=== PATIENT | male | born 1970 ===

== ENCOUNTER 2016-10-10 18:07 | Emergency (ER) | payer OTHER ==
[2016-10-10 18:08] VITALS: BMI 26.6
[2016-10-10 18:12] VITALS: PULSE 100; RESP 18; TEMP 98.5; O2SAT 98
[2016-10-10 18:22] VITALS: BP 143/94
--- NOTE | 2016-10-10 18:29 | C.PDOC ---
History Of Present Illness 46 y/o male presents to ED for evaluation of occasional throat irritation. Pt has had multiple evaluation for similar symptoms. Pt has history of persistent alcohol abuse daily. Pt is also concerned for elevated blood pressure, notes his BP was high when he checked it at the pharmacy today. Pt is complaint with his BP meds. Otherwise, denies any chest pain, shortness of breath, cough, congestion, or fever. Time Seen by Provider: 10/10/16 18:21 Chief Complaint (Nursing): ENT Problem History Per: Patient History/Exam Limitations: None Onset/Duration Of Symptoms: Days Current Symptoms Are (Timing): Still Present Quality (Mouth/Throat): Tenderness Past Medical History Reviewed: Historical Data, Nursing Documentation, Vital Signs Vital Signs: Last Vital Signs Temp 98.5 F 10/10/16 18:11 Pulse 100 H 10/10/16 18:11 Resp 18 10/10/16 18:11 BP 143/94 H 10/10/16 18:25 Pulse Ox 98 10/10/16 18:29 - Medical History PMH: HTN, Hypercholesterolemia, Hyperlipidemia Family History: States: Unknown Family Hx - Social History Hx Tobacco Use: No Hx Alcohol Use: Yes Hx Substance Use: No - Immunization History Hx Tetanus Toxoid Vaccination: No Hx Influenza Vaccination: No Hx Pneumococcal Vaccination: No Review Of Systems Except As Marked, All Systems Reviewed And Found Negative. Constitutional: Negative for: Fever, Chills ENT: Positive for: Throat Pain. Negative for: Ear Pain, Nose Discharge, Nose Congestion, Throat Swelling Cardiovascular: Negative for: Chest Pain, Palpitations, Edema, Light Headedness Respiratory: Negative for: Cough, Shortness of Breath Gastrointestinal: Negative for: Nausea, Vomiting, Abdominal Pain, Diarrhea Physical Exam - Physical Exam Appears: Non-toxic, No Acute Distress Skin: Normal Color, Warm, Dry Head: Atraumatic, Normacephalic Eye(s): bilateral: Normal Inspection Ear(s): Bilateral: Normal Nose: Normal Oral Mucosa: Moist Throat: Normal, No Erythema, No Exudate, No Drooling Neck: Normal ROM, Supple Chest: Symmetrical Cardiovascular: Rhythm Regular, No Murmur Respiratory: Normal Breath Sounds, No Rales, No Rhonchi, No Wheezing Gastrointestinal/Abdominal: Soft, No Tenderness Extremity: Bilateral: Atraumatic, Normal ROM Neurological/Psych: Oriented x3, Normal Speech ED Course And Treatment O2 Sat by Pulse Oximetry: 98 (on RA) Pulse Ox Interpretation: Normal Medical Decision Making Medical Decision Making: occasional sore throat or itchy soft palate may be more related to GERD from chronic alcoholism and gastritis PPI educated elev BP on sober days, cautioned to observe BP on days when not drinking etoh. good bp med compliance assured. Disposition Doctor Will See Patient In The: Office Counseled Patient/Family Regarding: Studies Performed, Diagnosis - Disposition Referrals: Fox Guzmán MD [Medical Doctor] - Disposition: HOME/ ROUTINE Disposition Time: 18:27 Condition: GOOD Additional Instructions: sherri Pepcid 20 mg en la noche para bajar el acides del estomago debido al uso del alcohol Puede provocar irritacion' del garganta. Recuerda que la pression se sube en los looney que no samanta alcohol. Instructions: Gastritis (ED), Gastroesophageal Reflux Disease (ED), Hypertension (ED) Forms: [employer] (Malagasy) Print Language: ALBANIAN - Clinical Impression Clinical Impression: HTN (hypertension), GERD (gastroesophageal reflux disease), Alcohol abuse, Throat irritation - Scribe Statement The provider has reviewed the documentation as recorded by the Scribe Ammon Parrish All medical record entries made by the Scribe were at my direction and personally dictated by me. I have reviewed the chart and agree that the record accurately reflects my personal performance of the history, physical exam, medical decision making, and the department course for this patient. I have also personally directed, reviewed, and agree with the discharge instructions and disposition.
== END 2016-10-10 18:41 | disposition home or self-care (01) ==
LOC: C.ER 18:07
DX: I10 Essential (primary) hypertension (principal); K21.9 Gastro-esophageal reflux disease without esophagitis; J39.2 Other diseases of pharynx; F10.10 Alcohol abuse, uncomplicated

== ENCOUNTER 2016-11-15 08:04 | Emergency (ER) | payer OTHER ==
[2016-11-15 08:04] VITALS: BMI 26.6
[2016-11-15 08:21] VITALS: RESP 18
--- NOTE | 2016-11-15 09:04 | C.PDOC ---
History Of Present Illness 46 yr old male presents to the ER for evaluation of recurring "hot face" since yesterday. Patient states currently the symptoms similar to prior episode. Patient states he felt his blood pressure was high but did not measure it at home. Patient has history if similar visit to ER. Denies fever, chest pain, SOB , nausea, vomiting, headache, weakness or numbness. RECUR "HOT FACE" SINCE YEST. CURRENT SX SIM TO PRIOR. FELT HIGH BP BUT DID NOT MEASURE AT HOME. NO OTHER ASSOC SX. PRIOR ER VISITS FOR SAME. EXAM NAD NONTOXIC HEENT NEG SKIN NEG CV RRR PSYCH CALM, MILD ANXIETY REMAINDER NEG Time Seen by Provider: 11/15/16 08:26 Chief Complaint (Nursing): Palpitations History Per: Patient History/Exam Limitations: no limitations Onset/Duration Of Symptoms: Persistent Past Medical History Reviewed: Historical Data, Nursing Documentation, Vital Signs Vital Signs: Last Vital Signs Temp 98.7 F 11/15/16 08:16 Pulse 111 H 11/15/16 08:16 Resp 18 11/15/16 08:16 BP 105/80 11/15/16 08:16 Pulse Ox 97 11/15/16 09:05 - Medical History PMH: HTN, Hypercholesterolemia, Hyperlipidemia Family History: States: No Known Family Hx - Social History Hx Tobacco Use: No Hx Alcohol Use: Yes Hx Substance Use: No - Immunization History Hx Tetanus Toxoid Vaccination: No Hx Influenza Vaccination: No Hx Pneumococcal Vaccination: No Review Of Systems Except As Marked, All Systems Reviewed And Found Negative. Constitutional: Negative for: Fever Cardiovascular: Negative for: Chest Pain Respiratory: Negative for: Shortness of Breath Gastrointestinal: Negative for: Nausea, Vomiting Neurological: Negative for: Weakness, Numbness, Headache Physical Exam - Physical Exam Appears: Non-toxic, No Acute Distress Skin: Warm, Dry, No Rash Head: Atraumatic, Normacephalic Oral Mucosa: Moist Chest: Symmetrical, No Tenderness Cardiovascular: Rhythm Regular, No Murmur Respiratory: Normal Breath Sounds, No Rales, No Rhonchi, No Wheezing Extremity: Normal ROM, No Swelling Neurological/Psych: Oriented x3, Normal Speech, Other ((+) Mild anxiety ) ED Course And Treatment ECG: Interpreted By Me ECG Rhythm: Sinus Tachycardia ECG Interpretation: Normal, No Changes From Prior Rate From EC (BPM) O2 Sat by Pulse Oximetry: 97 (RA) Pulse Ox Interpretation: Normal Medical Decision Making Medical Decision Making: PLAN: * EKG * Trandate PO Disposition Counseled Patient/Family Regarding: Studies Performed, Diagnosis, Need For Followup - Disposition Referrals: YOUR,PMD [Other] Disposition: HOME/ ROUTINE Disposition Time: 09:05 Condition: IMPROVED Instructions: Paresthesia (ED), Anxiety (ED) Forms: [facility] (Dominican), Gen Discharge Inst [place]raltarian Print Language: ENGLISH - Clinical Impression Clinical Impression: Paresthesia - Scribe Statement The provider has reviewed the documentation as recorded by the Nathanael Naylor Provider Attestation: All medical record entries made by the Nathanael were at my direction and personally dictated by me. I have reviewed the chart and agree that the record accurately reflects my personal performance of the history, physical exam, medical decision making, and the department course for this patient. I have also personally directed, reviewed, and agree with the discharge instructions and disposition.
[2016-11-15 09:45] VITALS: TEMP 98
[2016-11-15 10:20] VITALS: PULSE 89; O2SAT 95
[2016-11-15 10:51] VITALS: BP 183/98
--- NOTE | 2016-11-23 17:10 | CARD ---
APPROVED REPORT EKG Measurement Heart [id number] <Conclusion> Sinus tachycardia Incomplete right bundle branch block Left anterior fascicular block Abnormal ECG
== END 2016-11-15 10:57 | disposition home or self-care (01) ==
LOC: C.ER 08:04
DX: R20.2 Paresthesia of skin (principal); I10 Essential (primary) hypertension

== ENCOUNTER 2017-04-06 10:28 | Emergency (ER) | payer OTHER ==
[2017-04-06 10:28] VITALS: BMI 28.8
[2017-04-06 10:56] VITALS: O2SAT 98
[2017-04-06] MEDS ORDERED: Naproxen 550 mg Tab PO STA (11:10)
--- NOTE | 2017-04-06 11:11 | C.PDOC ---
History Of Present Illness 46 year old male presents to the ED for evaluation of left knee pain which began after he fell while on a bus yesterday. Patient states his pain is exacerbated by movement. He denies head injury, LOC, change in sensation, or any other injuries at this time. Time Seen by Provider: 04/06/17 10:58 Chief Complaint (Nursing): Lower Extremity Problem/Injury History Per: Patient History/Exam Limitations: no limitations Onset/Duration Of Symptoms: Hrs Current Symptoms Are (Timing): Still Present Additional History Per: Patient - Knee Description Of Injury: Fell Past Medical History Reviewed: Historical Data, Nursing Documentation, Vital Signs Vital Signs: Last Vital Signs Temp 98.5 F 04/06/17 12:19 Pulse 90 04/06/17 12:19 Resp 16 04/06/17 12:19 BP 141/86 04/06/17 12:19 Pulse Ox 98 04/06/17 13:28 - Medical History PMH: HTN, Hypercholesterolemia, Hyperlipidemia Denies: HIV, Chronic Kidney Disease Surgical History: No Surg Hx - [facility] Procedures INTRODUCTION OF SERUM/TOX/VACCINE INTO MUSCLE, PERC APPROACH (12/30/16) Family History: States: Unknown Family Hx - Social History Hx Tobacco Use: No Hx Alcohol Use: Yes Hx Substance Use: No - Immunization History Hx Tetanus Toxoid Vaccination: No Hx Influenza Vaccination: No Hx Pneumococcal Vaccination: No Review Of Systems Musculoskeletal: Positive for: Other (left knee pain ) Neurological: Negative for: Weakness, Numbness, Other (head injury/LOC ) Physical Exam - Physical Exam Appears: Non-toxic, No Acute Distress Skin: Normal Color, Warm, Dry Head: Atraumatic, Normacephalic Eye(s): bilateral: Normal Inspection, EOMI Nose: Normal Oral Mucosa: Moist Chest: Symmetrical Respiratory: No Accessory Muscle Use Extremity: Normal ROM, Tenderness (to anterior aspect of left knee ), Capillary Refill (less than 2 seconds ), No Deformity, Swelling (to anterior aspect of left knee and effusion ) Extremity: Bilateral: Normal Color And Temperature Pulses: Left Dorsalis Pedis: Normal, Right Dorsalis Pedis: Normal Neurological/Psych: Oriented x3, Normal Speech, Normal Cognition, Normal Sensation Gait: Steady ED Course And Treatment O2 Sat by Pulse Oximetry: 98 (on RA ) Pulse Ox Interpretation: Normal - Other Rad Knee XR X-Ray: Interpreted by Me (and Dr Parekh), Viewed By Me Interpretation: No fx or dislocation Progress Note: Left knee XR ordered and reviewed. Naproxen PO administered. Knee immobilizer applied by meter/relay technician. Crutch instructions given. Pt instructed RICe and is advised to f/u with orthopedic care for further evaluation in 1-2 days. Disposition - Disposition Referrals: Aravind Barry III, MD [Staff Provider] - Disposition: HOME/ ROUTINE Disposition Time: 11:59 Condition: STABLE Additional Instructions: Rest, ice , and elevate the area. Follow up with bone doctor in 1-2 days. Return to ER if symptoms persist or worsen. Descanse, hiele y eleve el wendy. Michael un seguimiento con el mdico de los huesos en 1-2 travis. Regrese a la rigoberto de emergencias si los sntomas persisten o empeoran. Prescriptions: Naproxen [Naprosyn] 1 tab PO BID PRN #20 tab PRN Reason: Pain Instructions: Knee Pain (DC) Forms: [employer] (Bengali) Print Language: LATVIAN - Clinical Impression Clinical Impression: Knee effusion, Knee contusion - PA / AIR TUBE RELEASER / Resident Statement MD/DO has reviewed & agrees with the documentation as recorded. - Scribe Statement The provider has reviewed the documentation as recorded by the Scribe (Jayda Parrish) All medical record entries made by the Scribe were at my direction and personally dictated by me. I have reviewed the chart and agree that the record accurately reflects my personal performance of the history, physical exam, medical decision making, and the department course for this patient. I have also personally directed, reviewed, and agree with the discharge instructions and disposition.
[2017-04-06] MEDS ORDERED: Naproxen 550 mg Tab PO ONE (11:19)
[2017-04-06 12:20] VITALS: BP 141/86; PULSE 90; RESP 16; TEMP 98.5
--- NOTE | 2017-04-06 15:06 | RAD ---
Left knee three views History: Knee pain. Comparison: 04/06/2017 Findings: Curvilinear ossific density adjacent to the superior aspect of the medial femoral condyle which may represent a small avulsion injury versus heterotopic bone. Clinical correlation. Mild medial compartment joint space narrowing of the femorotibial joint space. Moderate suprapatellar joint effusion. Impression: Moderate suprapatellar joint effusion. Curvilinear ossific density adjacent to the superior aspect of the medial femoral condyle which may represent a small avulsion injury versus heterotopic bone. Clinical correlation. If pain persists, consider MRI.
== END 2017-04-06 12:34 | disposition home or self-care (01) ==
LOC: C.ER 10:28
DX: M25.462 Effusion, left knee (principal); S80.02XA Contusion of left knee, initial encounter; W18.30XA Fall on same level, unspecified, initial encounter
CPT/HCPCS: 73562; 97116; 97161; 99285; G8978; G8979; G8980

== ENCOUNTER 2017-08-02 09:54 | Observation (INO) | payer OTHER ==
[2017-08-02 09:54] VITALS: BMI 28.8
--- NOTE | 2017-08-02 11:09 | C.PDOC ---
History Of Present Illness 47 y/o male, w/PMhx of HTN, presents to the ER complaining of headache,chest pain, and SOB which began yesterday. Patient states that he ran out of his BP medications and he does not have a doctor. Patient denies having dizziness, visual changes, cough, and fever. Time Seen by Provider: 08/02/17 10:36 Chief Complaint (Nursing): Headache History Per: Patient History/Exam Limitations: no limitations Onset/Duration Of Symptoms: Days Current Symptoms Are (Timing): Still Present Severity: Moderate Past Medical History Reviewed: Historical Data, Nursing Documentation, Vital Signs Vital Signs: Last Vital Signs Temp 98.0 F 08/03/17 15:42 Pulse 66 08/03/17 15:42 Resp 20 08/03/17 15:42 BP 129/77 08/03/17 17:52 Pulse Ox 97 08/03/17 15:42 - Medical History PMH: HTN, Hypercholesterolemia, Hyperlipidemia Denies: HIV, Chronic Kidney Disease Surgical History: No Surg Hx - [facility] Procedures INTRODUCTION OF SERUM/TOX/VACCINE INTO MUSCLE, PERC APPROACH (12/30/16) Family History: States: No Known Family Hx - Social History Hx Tobacco Use: No Hx Alcohol Use: Yes Hx Substance Use: No - Immunization History Hx Tetanus Toxoid Vaccination: No Hx Influenza Vaccination: No Hx Pneumococcal Vaccination: No Review Of Systems Except As Marked, All Systems Reviewed And Found Negative. Constitutional: Negative for: Fever, Chills Neurological: Positive for: Headache Physical Exam - Physical Exam Appears: Non-toxic, No Acute Distress, Other (awake, alert, orientedx3) Skin: Normal Color, Warm, Dry Head: Atraumatic, Normacephalic Eye(s): bilateral: Normal Inspection Nose: Normal Oral Mucosa: Moist Neck: Supple Chest: Symmetrical Cardiovascular: Rhythm Regular Respiratory: Normal Breath Sounds Gastrointestinal/Abdominal: Normal Exam, Soft, No Tenderness, No Guarding, No Rebound Extremity: Normal ROM, Other ((-) pitting edema) Neurological/Psych: Oriented x3, Normal Speech ED Course And Treatment - Laboratory Results Result Diagrams: 08/03/17 04:52 08/03/17 04:52 O2 Sat by Pulse Oximetry: 95 (RA) Pulse Ox Interpretation: Normal - CT Scan/US CT- Head Other Rad Studies (CT/US): Read By Radiologist, Radiology Report Reviewed CT/US Interpretation: PROCEDURE: CT HEAD WITHOUT CONTRAST. HISTORY: Headache. COMPARISON: 11/06/2015. TECHNIQUE: Axial computed tomography images were obtained through the head/brain without intravenous contrast. Radiation dose: Total exam DLP = mGy-cm. This CT exam was performed using one or more of the following dose reduction techniques: Automated exposure control, adjustment of the mA and/or kV according to patient size, and/or use of iterative reconstruction technique. FINDINGS: HEMORRHAGE: No intracranial hemorrhage. BRAIN: Spicer-white matter differentiation is preserved. There is no mass, mass effect or abnormal extra-axial fluid collection. There is no territorial infarction. VENTRICLES: There is mild age-related global parenchymal volume loss and proportionate enlargement of the ventricles and cortical sulci. CALVARIUM: The skull base and calvarium are normal. There is an old fracture deformity in the right lamina papyracea. PARANASAL SINUSES: Predominantly clear. MASTOID AIR CELLS: Predominantly clear. OTHER FINDINGS: None. IMPRESSION: No acute intracranial abnormality. Medical Decision Making Medical Decision Making: Plan: --Labs --CXR --CT - Head --Toprol PO Updates: On re-evaluation, patient continues to have headache. Trandate IV has been ordered. Spoke to Dr. Yao, who accepted the patient under hospitalist care. Disposition - Disposition Disposition: HOSPITALIZED Disposition Time: 13:31 Condition: GOOD - Clinical Impression Clinical Impression: Chest pain, Hypertensive urgency - Scribe Statement The provider has reviewed the documentation as recorded by the Nathanael Sierra Provider Attestation: All medical record entries made by the Nathanael were at my direction and personally dictated by me. I have reviewed the chart and agree that the record accurately reflects my personal performance of the history, physical exam, medical decision making, and the department course for this patient. I have also personally directed, reviewed, and agree with the discharge instructions and disposition.
[2017-08-02] MEDS ORDERED: Metoprolol Succinate 50 mg XL Tab PO STA (11:10)
[2017-08-02] MEDS ORDERED: Metoprolol Succinate 50 mg XL Tab PO ONE (11:22)
[2017-08-02 11:32] LABS: BASO # 0.1 K/uL (0.0-0.2); BASO % 1.1 % (0.0-2.0); EOS % 0.1 % (0.0-4.0); HEMOGLOBIN 14.7 g/dL (12.0-18.0); LYMPH # 1.3 K/uL (1.0-4.3); MEAN CORPUSCULAR HEMOGLOBIN 30.7 pg (27.0-31.0); MEAN CORPUSCULAR HGB CONC 33.6 g/dL (33.0-37.0); MEAN PLATELET VOLUME 8.2 fL (7.2-11.7); MONO # 0.4 K/uL (0.0-0.8); MONO % 5.1 % (0.0-10.0); NEUT # 5.5 K/uL (1.8-7.0); NEUT % 75.7 % (50.0-75.0); RBC 4.79 Mil/uL (4.40-5.90); RED CELL DISTRIBUTION WIDTH 13.8 % (11.5-14.5); WHITE BLOOD COUNT 7.3 K/uL (4.8-10.8)
[2017-08-02 11:36] LABS: MEAN CELL VOLUME 91.5 fL (80.0-94.0)
[2017-08-02 11:39] LABS: ALB/GLOB RATIO 1.3 (1.0-2.1); ALBUMIN 4.6 g/dL (3.5-5.0); ALT/SGPT 67 U/L (21-72); AST/SGOT 75 U/L (17-59); BLOOD UREA NITROGEN 6 mg/dL (9-20); CALCIUM 8.4 mg/dl (8.6-10.4); GFR AFRICAN-AMERICAN > 60; GFR NON-AFRICAN AMERICAN > 60
[2017-08-02] MEDS ORDERED: Labetalol 5 mg/ml Inj 20ML IV ONE (12:23)
[2017-08-02] MEDS ORDERED: Labetalol 25mg/5ml Syringe ONE ×2 (12:32→15:18)
--- NOTE | 2017-08-02 12:37 | CT ---
PROCEDURE: CT HEAD WITHOUT CONTRAST. HISTORY: Headache COMPARISON: 11/06/2015. TECHNIQUE: Axial computed tomography images were obtained through the head/brain without intravenous contrast. Radiation dose: Total exam DLP = mGy-cm. This CT exam was performed using one or more of the following dose reduction techniques: Automated exposure control, adjustment of the mA and/or kV according to patient size, and/or use of iterative reconstruction technique. FINDINGS: HEMORRHAGE: No intracranial hemorrhage. BRAIN: Spicer-white matter differentiation is preserved. There is no mass, mass effect or abnormal extra-axial fluid collection. There is no territorial infarction. VENTRICLES: There is mild age-related global parenchymal volume loss and proportionate enlargement of the ventricles and cortical sulci. CALVARIUM: The skull base and calvarium are normal. There is an old fracture deformity in the right lamina papyracea PARANASAL SINUSES: Predominantly clear. MASTOID AIR CELLS: Predominantly clear. OTHER FINDINGS: None. IMPRESSION: No acute intracranial abnormality.
--- NOTE | 2017-08-02 13:05 | RAD ---
PROCEDURE: CHEST RADIOGRAPH, 1 VIEW HISTORY: chest pain COMPARISON: 04/07/2016. FINDINGS: LUNGS: The lungs are well inflated and clear. PLEURA: No pneumothorax or pleural fluid seen. CARDIOVASCULAR: Normal. OSSEOUS STRUCTURES: No significant abnormalities. VISUALIZED UPPER ABDOMEN: Normal. OTHER FINDINGS: None. IMPRESSION: No active pulmonary disease.
[2017-08-02] MEDS ORDERED: Potassium Chloride 10 mEq ER Tab PO ONE (13:55)
[2017-08-02] MEDS ORDERED: Potassium Chloride 20 mEq ER Tab PO ONE (13:58)
[2017-08-02] MEDS ORDERED: Potassium Chloride 20 mEq ER Tab PO STA (14:08)
--- NOTE | 2017-08-02 14:15 | CP.PCM.HP ---
History of Present Illness - History of Present Illness History of Present Illness: Medicine H&P CC: headache x 2 months and chest pain x 2 days. HPI: This 47 y/o male with PMHx of HTN and HLD (non compliant with medication) - presents to the ER complaining of intermittent occipital headache for the past 2 months. He states that he ran out of his BP and HLD medications nearly 3 months ago because his PMD . He did not seek out another physician, and did not come to the [facility] where he was previously referred. He describes the occipital headaches as sharp, typically starting at 3am, and last up to 4 hours. He takes 2 tabs of Tylenol which usually help resolve the pain. Today, the pain persisted, thus spurring his ED visit. He also complains of mild L sided chest pain with deep inspiration for the last 2 days (he was admitted for this in 2017). The pain does not radiate. 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 Currently denies change in vision, dizziness, f/c, change in mental status, overt SOB, abdominal pain, n/v, d/c, LE swelling, or any additional acute complaints. 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 PMD: none Review of Systems: -Gen: No fever, No chills, +headache, No lethargy, No weakness. -HEENT: No dizziness, No change in vision, No change in hearing, No sore throat , No dysphagia, No nasal congestion, No mucous. -Cardio: +chest pain, No palpitations, No lower extremity edema, No orthopnea. -Resp: No cough, No dyspnea, No hemoptysis, No wheezing, +pain on inspiration. -GI: No abdominal pain, No nausea/vomiting, No diarrhea/constipation, No hematochezia, No hematemesis. -: No dysuria, No urinary freq, No incontinence, No hematuria, No change in urinary stream. -MSK: No back pain, No muscle weakness, No radiating pain. -Skin: No itching, No rash, No lesions. -Neuro: No confusion, No numbness, No tingling, No focal weakness, No radicular pain, No syncope. -Psych: No anxiety, No depression, No H/I, No S/I, No hallucinations. Present on Admission - Present on Admission Any Indicators Present on Admission: No Past Patient History - Past Medical History & Family History Past Medical History?: Yes - Past Social History Smoking Status: Never Smoked - CARDIAC Hx Hypercholesterolemia: Yes Hx Hypertension: Yes - PULMONARY Hx Respiratory Disorders: No - NEUROLOGICAL Hx Neurological Disorder: No - HEENT Hx HEENT Problems: No - RENAL Hx Chronic Kidney Disease: No - ENDOCRINE/METABOLIC Hx Endocrine Disorders: No - HEMATOLOGICAL/ONCOLOGICAL Hx Human Immunodeficiency Virus (HIV): No - INTEGUMENTARY Hx Dermatological Problems: No - MUSCULOSKELETAL/RHEUMATOLOGICAL Hx Musculoskeletal Disorders: No Hx Falls: No - GASTROINTESTINAL Hx Gastrointestinal Disorders: No - GENITOURINARY/GYNECOLOGICAL Hx Genitourinary Disorders: No - PSYCHIATRIC Hx Substance Use: No - SURGICAL HISTORY Hx Surgeries: No - ANESTHESIA Hx Anesthesia: No Meds Allergies/Adverse Reactions: Allergies Allergy/AdvReac Type Severity Reaction Status Date / Time No Known Allergies Allergy Verified 04/06/17 10:58 Physical Exam - Additional Findings Additional findings: - Constitutional Appears: Well, Non-toxic - Head Exam Head Exam: ATRAUMATIC, NORMAL INSPECTION - Eye Exam Eye Exam: EOMI, Normal appearance - ENT Exam ENT Exam: Mucous Membranes Moist - Neck Exam Neck exam: Positive for: Full Rom. Negative for: Lymphadenopathy - Respiratory Exam Respiratory Exam: Clear to Auscultation Bilateral, NORMAL BREATHING PATTERN. absent: Rales, Rhonchi, Wheezes -L sided chest pain with deep inspiration -L ribs non-tender to palpation - Cardiovascular Exam Cardiovascular Exam: Tachycardia, RRR, +S1, +S2. absent: Clicks, Diastolic murmur, Gallop, Irregular Rhythm, JVD, Rubs - GI/Abdominal Exam GI & Abdominal Exam: Normal Bowel Sounds, Soft. absent: Tenderness (obese abdomen) -no organomegally - Extremities Exam Extremities exam: Positive for: full ROM, normal capillary refill, normal inspection, pedal pulses present. Negative for: calf tenderness, joint swelling , pedal edema, tenderness - Back Exam Back exam: NORMAL INSPECTION. absent: CVA tenderness (L), CVA tenderness (R) - Neurological Exam Neurological exam: Alert, CN II-XII Intact, Normal Gait, Oriented x3, Reflexes Normal - Psychiatric Exam Psychiatric exam: Normal Affect, Normal Mood - Skin Skin Exam: Warm, Dry, Intact Results - Vital Signs Recent Vital Signs: Last Vital Signs Temp 98.9 F 08/02/17 10:09 Pulse 90 08/02/17 12:35 Resp 18 08/02/17 12:35 BP 184/102 H 08/02/17 12:35 Pulse Ox 95 08/02/17 13:34 - Labs Result Diagrams: 08/02/17 11:22 08/02/17 11:22 Labs: Laboratory Results - last 24 hr 08/02/17 08/02/17 11:22 11:22 WBC 7.3 RBC 4.79 Hgb 14.7 Hct 43.8 MCV 91.5 D MCH 30.7 MCHC 33.6 RDW 13.8 Plt Count 258 MPV 8.2 Neut % (Auto) 75.7 H Lymph % (Auto) 18.0 L [place] % (Auto) 5.1 Eos % (Auto) 0.1 Baso % (Auto) 1.1 Neut # (Auto) 5.5 Lymph # (Auto) 1.3 [place] # (Auto) 0.4 Eos # (Auto) 0.0 Baso # (Auto) 0.1 Sodium 142 Potassium 3.4 L Chloride 100 Carbon Dioxide 27 Anion Gap 18 BUN 6 L Creatinine 0.5 L Est GFR ( Amer) > 60 Est GFR (Non-Af Amer) > 60 Random Glucose 104 Calcium 8.4 L Total Bilirubin 0.3 AST 75 H D ALT 67 Alkaline Phosphatase 119 Troponin I < 0.0120 Total Protein 8.2 Albumin 4.6 Globulin 3.6 Albumin/Globulin Ratio 1.3 Assessment & Plan - Assessment and Plan (Free Text) Assessment: Hypertensive Urgency -Patient has not taken any home meds in 3 months -start home Coreg 6.25mg PO q12 -start Losartan 50mg PO qD (home valsartan 80mg PO qd not on formulary) -Hydralazine 10mg IVP Q6H PRN, SBP > 180 -Vitals Q4H or more, until BP well controlled. -ED course: patient received Toprol XL 50mg PO and Labetalol 20mg IVP once, bringing his BP down from 201/102 to 160/109. Occipital Headache -CT head negative, see full report. -likely 2/2 elevated BP for several months. 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 -likely pluritic -CXR negative, see full report. -Tylenol 650mg PO q6H PRN -Troponin negative x1 -EKG with nsr, no ST changes, with L ant fasicular block (possible pulm HTN?). f /u official read. -f/u MARCELA + EKG at 8p / 4a -f/u echo (prior echo 12/30/16 showed EF 70%, abnormal relaxation pattern). -consider cardio consult if Echo abnormal or BP very difficult to control. Hyperlipidemia -Patient has not taken any home meds in 3 months -start crestor 5mg PO qd (home lipitor 10mg not on formulary) -f/u FLP, A1c, TSH, Free T4 Electrolyte Imbalance 08/02: Hypokalemia, K3.4 - Kdur 40 Prophylaxis SCDs heart healthy diet - Date & Time Date: 08/02/17 Time: 15:15
[2017-08-02] MEDS ORDERED: Labetalol 25mg/5ml Syringe IVP STA (15:15)
[2017-08-02 17:08] LABS: URINE BILIRUBIN NEGATIVE (NEGATIVE); URINE CLARITY Clear (Clear); URINE COLOR Straw (YELLOW); URINE GLUCOSE (UA) NORMAL (Normal); URINE LEUKOCYTE ESTERASE NEG Leu/uL (Negative); URINE PROTEIN NEGATIVE (NEGATIVE); URINE UROBILINOGEN NORMAL mg/dL (0.2-1.0)
[2017-08-02 17:16] LABS: URINE BLOOD TRACE-INTACT (NEGATIVE)
[2017-08-02 22:44] LABS: CK-MB 1.47 ng/mL (0.0-3.38); TROPONIN I 0.014 ng/mL (0.00-0.120)
[2017-08-03 04:58] LABS: BASO # 0.1 K/uL (0.0-0.2); BASO % 1.2 % (0.0-2.0); EOS # 0.1 K/uL (0.0-0.7); EOS % 1.9 % (0.0-4.0); LYMPH # 2.3 K/uL (1.0-4.3); LYMPH % 29.1 % (20.0-40.0); MEAN CELL VOLUME 90.8 fL (80.0-94.0); MEAN CORPUSCULAR HEMOGLOBIN 30.7 pg (27.0-31.0); MEAN CORPUSCULAR HGB CONC 33.8 g/dL (33.0-37.0); MEAN PLATELET VOLUME 7.8 fL (7.2-11.7); MONO # 0.7 K/uL (0.0-0.8); MONO % 8.5 % (0.0-10.0); NEUT # 4.6 K/uL (1.8-7.0); NEUT % 59.3 % (50.0-75.0); NRBC % 0.1 % (0.0-2.0); RBC 4.89 Mil/uL (4.40-5.90); RED CELL DISTRIBUTION WIDTH 13.3 % (11.5-14.5); WHITE BLOOD COUNT 7.8 K/uL (4.8-10.8)
[2017-08-03 05:27] LABS: LDL CHOLESTEROL 160 mg/dL (0-129)
[2017-08-03 05:34] VITALS: RESP 20
[2017-08-03 05:34] LABS: ALB/GLOB RATIO 1.2 (1.0-2.1); ALBUMIN 4.1 g/dL (3.5-5.0); ALT/SGPT 57 U/L (21-72); AST/SGOT 64 U/L (17-59); BLOOD UREA NITROGEN 9 mg/dL (9-20); CALCIUM 9.1 mg/dl (8.6-10.4); GFR AFRICAN-AMERICAN > 60; GFR NON-AFRICAN AMERICAN > 60; HDL CHOLESTEROL 60 mg/dL (30-70)
[2017-08-03 06:28] LABS: CK-MB 1.34 ng/mL (0.0-3.38)
--- NOTE | 2017-08-03 09:05 | CP.PCM.PN ---
<Sonali Wells - Last Filed: 08/03/17 13:14> Subjective - Date & Time of Evaluation Date of Evaluation: 08/03/17 Time of Evaluation: 07:00 - Subjective Subjective: PGY2- medicine note for Dr. Sevilla Patient seen and examined at bedside. Patient still has occipital headache which he says is better than yesterday, but rates it as a 8/10. Patient denies any chest pain, shortness of breath, abdominal pain, nausea, vomiting, constipation, or diarrhea. Objective - Vital Signs/Intake and Output Vital Signs (last 24 hours): Temp Pulse Resp BP Pulse Ox 98.4 F 76 20 156/99 H 98 08/03/17 07:00 08/03/17 08:35 08/03/17 07:00 08/03/17 07:00 08/03/17 08:41 - Medications Medications: Current Medications Acetaminophen (Tylenol 325mg Tab) 650 mg PO Q6 PRN PRN Reason: Pain, Mild (1-3) Last Admin: 08/03/17 06:13 Dose: 650 mg Aspirin (Aspirin Chewable) 81 mg PO DAILY [facility] Carvedilol (Coreg) 6.25 mg PO BID [facility] Last Admin: 08/02/17 17:00 Dose: 6.25 mg Heparin Sodium (Porcine) (Heparin) 5,000 units SC Q12 [facility] Hydralazine HCl (Apresoline) 10 mg IVP Q6H PRN PRN Reason: SBP>160 Losartan Potassium (Cozaar) 50 mg PO DAILY [facility] Last Admin: 08/02/17 16:51 Dose: 50 mg Rosuvastatin Calcium (Crestor) 5 mg PO HS [facility] Last Admin: 08/02/17 22:51 Dose: 5 mg - Labs Labs: 08/03/17 04:52 08/03/17 04:52 - Additional Findings Additional findings: - Constitutional Appears: Well, Non-toxic - Head Exam Head Exam: ATRAUMATIC, NORMAL INSPECTION - Eye Exam Eye Exam: EOMI, Normal appearance - ENT Exam ENT Exam: Mucous Membranes Moist - Neck Exam Neck exam: Positive for: Full Rom. Negative for: Lymphadenopathy - Respiratory Exam Respiratory Exam: Clear to Auscultation Bilateral, NORMAL BREATHING PATTERN. absent: Rales, Rhonchi, Wheezes -L sided chest pain with deep inspiration -L ribs non-tender to palpation - Cardiovascular Exam Cardiovascular Exam: Tachycardia, RRR, +S1, +S2. absent: Clicks, Diastolic murmur, Gallop, Irregular Rhythm, JVD, Rubs - GI/Abdominal Exam GI & Abdominal Exam: Normal Bowel Sounds, Soft. absent: Tenderness (obese abdomen) -no organomegaly - Extremities Exam Extremities exam: Positive for: full ROM, normal capillary refill, normal inspection, pedal pulses present. Negative for: calf tenderness, joint swelling , pedal edema, tenderness - Back Exam Back exam: NORMAL INSPECTION. absent: CVA tenderness (L), CVA tenderness (R) - Neurological Exam Neurological exam: Alert, CN II-XII Intact, Normal Gait, Oriented x3, Reflexes Normal - Psychiatric Exam Psychiatric exam: Normal Affect, Normal Mood - Skin Skin Exam: Warm, Dry, Intact Assessment and Plan - Assessment and Plan (Free Text) Assessment: Hypertensive Urgency -Patient has not taken any home meds in 3 months -Coreg increased to 12.5 mg po BID on 08/03 (from 6.25mg po BID) -Losartan 50mg PO qD (home valsartan 80mg PO qd not on formulary) -Hydralazine 10mg IVP Q6H PRN, SBP > 180 -Vitals Q4H or more, until BP well controlled. -ED course: patient received Toprol XL 50mg PO and Labetalol 20mg IVP once, bringing his BP down from 201/102 to 160/109. -f/u ECHO HgA1C: 5.5 Occipital Headache -CT head negative, see full report. -likely 2/2 elevated BP for several months. 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 -likely pluritic -CXR negative, see full report. -Tylenol 650mg PO q6H PRN -Troponin negative x1 -EKG with nsr, no ST changes, with L ant fasicular block (possible pulm HTN?). f /u official read. -f/u MARCELA + EKG at 8p / 4a -f/u echo (prior echo 12/30/16 showed EF 70%, abnormal relaxation pattern). -consider cardio consult if Echo abnormal or BP very difficult to control. Hyperlipidemia -Patient has not taken any home meds in 3 months Lipid: Triglycerides 431, Chol 238, LDL 160, -Crestor increased to 20mg po HS (from 5mg on 08/03) Elevated TSH Free T4: .72 TSH: 8.12 will need follow up as an outpatient Electrolyte Imbalance, resolved K+ 4.0 08/02: Hypokalemia, K3.4 - Kdur 40 Prophylaxis SCDs heart healthy diet <DiGer H - Last Filed: 08/03/17 17:02> Objective - Vital Signs/Intake and Output Vital Signs (last 24 hours): Temp Pulse Resp BP Pulse Ox 98.0 F 66 20 138/82 97 08/03/17 15:42 08/03/17 15:42 08/03/17 15:42 08/03/17 15:42 08/03/17 15:42 - Medications Medications: Current Medications Acetaminophen (Tylenol 325mg Tab) 650 mg PO Q6 PRN PRN Reason: Pain, Mild (1-3) Last Admin: 08/03/17 06:13 Dose: 650 mg Aspirin (Aspirin Chewable) 81 mg PO DAILY [facility] Last Admin: 08/03/17 09:41 Dose: 81 mg Carvedilol (Coreg) 12.5 mg PO BID [facility] Heparin Sodium (Porcine) (Heparin) 5,000 units SC Q12 [facility] Last Admin: 08/03/17 09:41 Dose: 5,000 units Hydralazine HCl (Apresoline) 10 mg IVP Q6H PRN PRN Reason: SBP>160 Losartan Potassium (Cozaar) 50 mg PO DAILY [facility] Last Admin: 08/03/17 09:41 Dose: 50 mg Rosuvastatin Calcium (Crestor) 20 mg PO HS [facility] - Labs Labs: 08/03/17 04:52 08/03/17 04:52 Attending/Attestation - Attestation I have personally seen and examined this patient.: Yes I have fully participated in the care of the patient.: Yes I have reviewed all pertinent clinical information, including history, physical exam and plan: Yes Notes (Text): 08/03/17 16:58 Medical attending: Patient was seen and examined by me. Agree with the above note by the resident As mentioned previously the patient had not taken medication for almost 3 months. The numbers are better now. The patient was increased on his BB. I later received word in the afternoon of potential suicidal ideation. 1 to 1 was started. Ger Sevilla
[2017-08-03] MEDS ORDERED: Potassium Chloride 20 mEq ER Tab PO SCH (10:00)
--- NOTE | 2017-08-03 16:24 | CARD ---
APPROVED REPORT EXAM: Two-dimensional and M-mode echocardiogram with Doppler and color Doppler. Other Information Quality : GoodRhythm : INDICATION Dizziness and Vertigo Chest Pain alcohol intoxication RISK FACTORS Hypertension 2D DIMENSIONS IVSd1.2 (0.7-1.1cm)LVDd4.6 (3.9-5.9cm) PWd1.0 (0.7-1.1cm)LVDs2.8 (2.5-4.0cm) FS (%) 38.7 %LVEF (%)75.0 (>50%) M-Mode DIMENSIONS RVDd1.11 (2.1-3.2cm)Left Atrium (MM)3.68 (2.5-4.0cm) IVSd1.18 (0.7-1.1cm)Aortic Root3.15 (2.2-3.7cm) LVDd5.53 (4.0-5.6cm)Aortic Cusp Exc.2.15 (1.5-2.0cm) PWd1.36 (0.7-1.1cm)FS (%) 47 % LVDs2.95 (2.0-3.8cm)LVEF (%)78 (>50%) Mitral Valve MV E Ptzrrlss067.8cm/sMV A Oeruhxkn792.0cm/sE/A ratio1.2 TDI E/Lateral E'0.0E/Medial E'0.0 Tricuspid Valve TR Peak [id number]/sTR Peak [id number] <Conclusion> normal size la,lv & ra rv. normal lv wall motion & systolic function with lvef of ore than 70%. mild concentriic lvh. normal lv diastolic function. normal aortic,mitral,tv & pv. mild tr with normal pulmonary systolic pressures of 20 mm of hg. no pericardial effusion. normal size ivc & aortic root.
[2017-08-04 00:26] VITALS: O2SAT 98
[2017-08-04 07:15] LABS: BASO # 0.1 K/uL (0.0-0.2); BASO % 1.3 % (0.0-2.0); EOS # 0.2 K/uL (0.0-0.7); EOS % 2.4 % (0.0-4.0); HEMOGLOBIN 14.8 g/dL (12.0-18.0); LYMPH # 1.7 K/uL (1.0-4.3); LYMPH % 26.3 % (20.0-40.0); MEAN CELL VOLUME 90.8 fL (80.0-94.0); MEAN CORPUSCULAR HEMOGLOBIN 30.7 pg (27.0-31.0); MEAN CORPUSCULAR HGB CONC 33.8 g/dL (33.0-37.0); MEAN PLATELET VOLUME 8.4 fL (7.2-11.7); MONO # 0.4 K/uL (0.0-0.8); MONO % 5.9 % (0.0-10.0); NEUT # 4.2 K/uL (1.8-7.0); NEUT % 64.1 % (50.0-75.0); NRBC % 0.2 % (0.0-2.0); RBC 4.83 Mil/uL (4.40-5.90); RED CELL DISTRIBUTION WIDTH 13.6 % (11.5-14.5); WHITE BLOOD COUNT 6.5 K/uL (4.8-10.8)
[2017-08-04 07:49] LABS: ALB/GLOB RATIO 1.2 (1.0-2.1); ALBUMIN 4.1 g/dL (3.5-5.0); ALT/SGPT 63 U/L (21-72); AST/SGOT 101 U/L (17-59); BLOOD UREA NITROGEN 15 mg/dL (9-20); CALCIUM 8.7 mg/dl (8.6-10.4); GFR AFRICAN-AMERICAN > 60; GFR NON-AFRICAN AMERICAN > 60
[2017-08-04 08:03] VITALS: TEMP 97.3
[2017-08-04 08:22] VITALS: PULSE 70
[2017-08-04 09:44] VITALS: BP 139/80
--- NOTE | 2017-08-04 10:34 | PCM.PSYCH ---
Initial Psychiatric Evaluation - Initial Psychiatric Evaluation Type of Admission: Voluntary Legal Status: Capacity Chief Complaint (in patient's own words): "I'm fine" History of Present Illness and Precipitating Events: The patient is seen, chart reviewed and case discussed. His sister was with him and she is also interviewed with his permission. At Syriac-speaking medical aide used. Consultation was requested because he made a suicidal remark. This is a 47-year-old male, single with no child, unemployed and lives alone. He denies feeling depressed but stressed because of being in the hospital and having medical issues. He sleeps okay, eats okay and mood is "fine" He denies meaning he was suicidal and that he was just frustrated and may be even talking about something else, "my dream." He is future oriented, pleasant and cooperative His sister confirms that the patient has not been suicidal and overall okay. Past psych history: Denies. No suicide attempts Medical history: Hypertension Family psych history: Denies Current Medications: Active Medications Generic Name Dose Route Start Last Admin Trade Name Freq PRN Reason Stop Dose Admin Acetaminophen 650 mg 08/02/17 16:01 08/03/17 06:13 Tylenol 325mg Tab PO 650 mg Q6 PRN Administration Pain, Mild (1-3) Aspirin 81 mg 08/03/17 10:00 08/04/17 09:44 Aspirin Chewable PO 81 mg DAILY [facility] Administration Carvedilol 12.5 mg 08/03/17 18:00 08/04/17 09:44 Coreg PO 12.5 mg BID [facility] Administration Heparin Sodium (Porcine) 5,000 units 08/03/17 10:00 08/04/17 09:44 Heparin SC 5,000 units Q12 [facility] Administration Hydralazine HCl 10 mg 08/02/17 21:24 Apresoline IVP Q6H PRN SBP>160 Losartan Potassium 50 mg 08/02/17 15:45 08/04/17 09:44 Cozaar PO 50 mg DAILY [facility] Administration Rosuvastatin Calcium 20 mg 08/03/17 13:14 08/03/17 22:33 Crestor PO 20 mg HS [facility] Administration Past Psychiatric History - Past Psychiatric History Previous Treatment History: None Pertinent Medical Hx (Current Medical&Sleep Prob, Allergies): Allergies Allergy/AdvReac Type Severity Reaction Status Date / Time No Known Allergies Allergy Verified 04/06/17 10:58 Aspirin [Aspirin Chewable] 81 mg PO DAILY #30 chew 08/04/17 Carvedilol [Coreg] 12.5 mg PO BID #60 tab 08/04/17 Losartan [Cozaar] 50 mg PO DAILY #30 tab 08/04/17 Rosuvastatin Calcium [Crestor] 20 mg PO HS #30 tab 08/04/17 Review of Systems - Psychiatric Psychiatric: Anxiety. absent: Depression, Hallucinations, Homicidal Ideation, Hopelessness, Paranoia, Suicidal Ideation Mental Status Examination - Personal Presentation Personal Presentation: Looks stated age - Affect Affect: Constricted - Motor Activity Motor Activity: Calm - Reliability in Providing Information Reliability in Providing Information: Good - Speech Speech: Organized - Mood Mood: Depressed (Mild), Anxious - Formal Thought Process Formal Thought Process: No Impairment - Cognitive Functions Orientation: Person, Place, Situation, Time Sensorium: Alert Attention/Concentration: Attentive Estimate of Intelligence: Average Judgement: Intact, as evidence by: Insight regarding need for hospitalization Memory: Recent intact, as evidence by: Ability to recall events of the day, Remote intact, as evidenced by: Abilit to recall sig. life events - Risk Risk: Diminished functioning - Strength & Assets Inventory Strength & Assets Inventory: Family support, Cooperative - Limitations Limitations: Living alone DSM 5 DX - DSM 5 DSM 5 Diagnosis: Adjustment disorder with depressed mood - Recommended/Plan of Treatment Treatment Recommendations and Plan of Treatment: Cleared for discharge No medications Counseling and psychotherapy recommended Support and psychoeducation given 32 minutes
--- NOTE | 2017-08-04 11:18 | CP.PCM.DIS ---
<Sonali Wells - Last Filed: 08/04/17 11:10> Provider - Provider Date of Admission: 08/02/17 13:31 Attending physician: eGr Sevilla DO Consults: Dr. Monique (psych) Time Spent in preparation of Discharge (in minutes): 40 Diagnosis - Discharge Diagnosis (1) Hypertensive urgency Status: Resolved (2) Headache Status: Resolved Priority: High (3) HTN (hypertension) Status: Chronic (4) Dyslipidemia Status: Chronic Priority: High Hospital Course - Lab Results Lab Results: Most Recent Lab Values WBC 6.5 K/uL (4.8-10.8) 08/04/17 07:01 RBC 4.83 Mil/uL (4.40-5.90) 08/04/17 07:01 Hgb 14.8 g/dL (12.0-18.0) 08/04/17 07:01 Hct 43.9 % (35.0-51.0) 08/04/17 07:01 MCV 90.8 fL (80.0-94.0) 08/04/17 07:01 MCH 30.7 pg (27.0-31.0) 08/04/17 07:01 MCHC 33.8 g/dL (33.0-37.0) 08/04/17 07:01 RDW 13.6 % (11.5-14.5) 08/04/17 07:01 Plt Count 276 K/uL (130-400) 08/04/17 07:01 MPV 8.4 fL (7.2-11.7) 08/04/17 07:01 Neut % (Auto) 64.1 % (50.0-75.0) 08/04/17 07:01 Lymph % (Auto) 26.3 % (20.0-40.0) 08/04/17 07:01 [place] % (Auto) 5.9 % (0.0-10.0) 08/04/17 07:01 Eos % (Auto) 2.4 % (0.0-4.0) 08/04/17 07:01 Baso % (Auto) 1.3 % (0.0-2.0) 08/04/17 07:01 Neut # (Auto) 4.2 K/uL (1.8-7.0) 08/04/17 07:01 Lymph # (Auto) 1.7 K/uL (1.0-4.3) 08/04/17 07:01 [place] # (Auto) 0.4 K/uL (0.0-0.8) 08/04/17 07:01 Eos # (Auto) 0.2 K/uL (0.0-0.7) 08/04/17 07:01 Baso # (Auto) 0.1 K/uL (0.0-0.2) 08/04/17 07:01 Sodium 138 mmol/L (132-148) 08/04/17 07:01 Potassium 3.9 mmol/L (3.6-5.2) 08/04/17 07:01 Chloride 104 mmol/L (98-107) 08/04/17 07:01 Carbon Dioxide 24 mmol/L (22-30) 08/04/17 07:01 Anion Gap 13 (10-20) 08/04/17 07:01 BUN 15 mg/dL (9-20) 08/04/17 07:01 Creatinine 0.7 mg/dL (0.8-1.5) L 08/04/17 07:01 Est GFR ( Amer) > 60 08/04/17 07:01 Est GFR (Non-Af Amer) > 60 08/04/17 07:01 POC Glucose (mg/dL) 91 mg/dL (65-110) 08/04/17 05:59 Random Glucose 95 mg/dL (75-110) 08/04/17 07:01 Hemoglobin A1c 5.5 % (4.2-6.5) 08/03/17 04:52 Calcium 8.7 mg/dl (8.6-10.4) 08/04/17 07:01 Phosphorus 4.5 mg/dL (2.5-4.5) 08/04/17 07:01 Magnesium 2.2 mg/dL (1.6-2.3) 08/04/17 07:01 Total Bilirubin 0.7 mg/dL (0.2-1.3) 08/04/17 07:01 AST 101 U/L (17-59) H D 08/04/17 07:01 ALT 63 U/L (21-72) 08/04/17 07:01 Alkaline Phosphatase 111 U/L (38-126) 08/04/17 07:01 Total Creatine Kinase 228 U/L (55-170) H 08/03/17 05:40 CK-MB (Mass) 1.34 ng/mL (0.0-3.38) 08/03/17 05:40 Troponin I < 0.0120 ng/mL (0.00-0.120) 08/03/17 05:40 Total Protein 7.4 g/dL (6.3-8.3) 08/04/17 07:01 Albumin 4.1 g/dL (3.5-5.0) 08/04/17 07:01 Globulin 3.3 gm/dL (2.2-3.9) 08/04/17 07:01 Albumin/Globulin Ratio 1.2 (1.0-2.1) 08/04/17 07:01 Triglycerides 431 mg/dL (0-149) H D 08/03/17 04:52 Cholesterol 238 mg/dL (0-199) H 08/03/17 04:52 LDL Cholesterol Direct 160 mg/dL (0-129) H 08/03/17 04:52 HDL Cholesterol 60 mg/dL (30-70) 08/03/17 04:52 Free T4 0.72 ng/dL (0.78-2.19) L 08/03/17 04:52 TSH 3rd Generation 8.12 mIU/L (0.46-4.68) H 08/03/17 04:52 Urine Color Straw (YELLOW) 08/02/17 16:55 Urine Clarity Clear (Clear) 08/02/17 16:55 Urine pH 8.0 (5.0-8.0) 08/02/17 16:55 Ur Specific [place] 1.011 (1.003-1.030) 08/02/17 16:55 Urine Protein Negative mg/dL (NEGATIVE) 08/02/17 16:55 Urine Glucose (UA) Normal mg/dL (Normal) 08/02/17 16:55 Urine Ketones Negative mg/dL (NEGATIVE) 08/02/17 16:55 Urine Blood Trace-intact (NEGATIVE) 08/02/17 16:55 Urine Nitrate Negative (NEGATIVE) 08/02/17 16:55 Urine Bilirubin Negative (NEGATIVE) 08/02/17 16:55 Urine Urobilinogen Normal mg/dL (0.2-1.0) 08/02/17 16:55 Ur Leukocyte Esterase Neg Josee/uL (Negative) 08/02/17 16:55 Urine WBC (Auto) < 1 /hpf (0-5) 08/02/17 16:55 Urine RBC (Auto) 2 /hpf (0-3) 08/02/17 16:55 Alcohol, Quantitative < 10 mg/dl (0-10) 08/02/17 20:36 - Hospital Course Hospital Course: "HPI: This 47 y/o male with PMHx of HTN and HLD (non compliant with medication) - presents to the ER complaining of intermittent occipital headache for the past 2 months. He states that he ran out of his BP and HLD medications nearly 3 months ago because his PMD . He did not seek out another physician, and did not come to the [facility] where he was previously referred. He describes the occipital headaches as sharp, typically starting at 3am, and last up to 4 hours. He takes 2 tabs of Tylenol which usually help resolve the pain. Today, the pain persisted, thus spurring his ED visit. He also complains of mild L sided chest pain with deep inspiration for the last 2 days (he was admitted for this in 2017). The pain does not radiate. 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 Currently denies change in vision, dizziness, f/c, change in mental status, overt SOB, abdominal pain, n/v, d/c, LE swelling, or any additional acute complaints. " Patient presented with hypertensive urgency with complaints of headache. He presented on 08/02/17 with BP of 201/102. Patient was started back on his home medication of Coreg 6.25mg Q12 PO. Patient was started on losartan 50mg QD PO, Hydralazine 10mg IVP Q6 PRN forSBP that was over 180. Patient was given toprol xl 50mg PO and labetalol 20 IVP once to decrease blood pressure to 160/109. On pressure was still elevated 156/99 and Coreg was then increased to 12.5 mg PO BID. On 08/04/17 upon discharge BP was 139/80. Patient will go home with prescriptions for HTN medications. Patient had an occipital headache. Patient recieved Tylenol 650,g PO Q6 PRN. CT without contrast was ordered and was unremarkable. Upon discharge patient had no headache. Patient had chest pain unrelated to exertion. CXR was performed andunremarkable. Troponin I, MARCELA, and EKG were unremarkable. ECHO was performed and LVEF 78% with mild tricuspid regurgitation. Patient recieved Tylenol 650,g PO Q6 PRN. Patient has PMH of hyperlipidemia. Patient was started on Crestor 5mg PO QD and increased to Crestor 20 mg po HS due to lipid panel: triglycerides 431, cholesterol 238, LDL 160, HDL 60. During stay patient also found to have TSH 8.12 and free T5 .72 which will need to be followe up as an outpatient. On 08.03.17 nursing endorsed that patient said he wanted to jump out the window to kill himself. When I spoke with the patient he explained to be he was just having bad dreams during which he thought he would . Patient was kept on 1: 1. Dr. Monique came and evaluated him and decided patient was safe and stable for dis This is a summary of hospital stay, please see chart for full details. Discharge Exam - Head Exam Head Exam: ATRAUMATIC, NORMAL INSPECTION, NORMOCEPHALIC - Eye Exam Eye Exam: EOMI, Normal appearance, PERRL - ENT Exam ENT Exam: Mucous Membranes Moist - Neck Exam Neck exam: Full Rom - Respiratory Exam Respiratory Exam: Clear to PA & Lateral, NORMAL BREATHING PATTERN, UNREMARKABLE. absent: Rales, Rhonchi, Wheezes, Stridor - Cardiovascular Exam Cardiovascular Exam: REGULAR RHYTHM, RRR. absent: Gallop, Rubs, +S1, +S2 - GI/Abdominal Exam GI & Abdominal Exam: Normal Bowel Sounds, Soft. absent: Tenderness - Extremities Exam Extremities exam: full ROM, normal inspection - Back Exam Back exam: NORMAL INSPECTION - Neurological Exam Neurological exam: Alert, Oriented x3 - Psychiatric Exam Psychiatric exam: Normal Affect, Normal Mood - Skin Skin Exam: Intact, Normal Color, Warm Discharge Plan - Discharge Medications Prescriptions: Aspirin [Aspirin Chewable] 81 mg PO DAILY #30 chew Carvedilol [Coreg] 12.5 mg PO BID #60 tab Losartan [Cozaar] 50 mg PO DAILY #30 tab Rosuvastatin Calcium [Crestor] 20 mg PO HS #30 tab - Follow Up Plan Condition: GOOD Disposition: HOME/ ROUTINE Instructions: Chest Pain, High Blood Pressure (DC), Low Salt Diet, Aspirin, Carvedilol, Losartan, Rosuvastatin Additional Instructions: Patient stable for discharge as per Dr. Sevilla and Dr. Monique. Patient to take the following medications: Aspirin 81mg daily Carvedilol 12.5mg twice a day Losartan 50mg daily Crestor 20mg at bedtime Patient should follow up with the clinic at [facility] ([phone]) or in [place] ([phone]) within one week. Paciente para loretta los siguientes medicamentos: Aspirina 81 mg al da Carvedilol 12.5 mg dos veces al da Losartan 50 mg al da Crestor 20mg antes de acostarse El paciente debe hacer kaiden meliza con la clnica en [facility] [place] ([phone] ) o en [place] ([phone]) dentro de kaiden semana. Referrals: [facility] [Provider Group] <Ger Sevilla - Last Filed: 08/04/17 14:19> Provider - Provider Date of Admission: 08/02/17 13:31 Attending physician: Ger Sevilla DO Hospital Course - Lab Results Lab Results: Most Recent Lab Values WBC 6.5 K/uL (4.8-10.8) 08/04/17 07:01 RBC 4.83 Mil/uL (4.40-5.90) 08/04/17 07:01 Hgb 14.8 g/dL (12.0-18.0) 08/04/17 07:01 Hct 43.9 % (35.0-51.0) 08/04/17 07:01 MCV 90.8 fL (80.0-94.0) 08/04/17 07:01 MCH 30.7 pg (27.0-31.0) 08/04/17 07:01 MCHC 33.8 g/dL (33.0-37.0) 08/04/17 07:01 RDW 13.6 % (11.5-14.5) 08/04/17 07:01 Plt Count 276 K/uL (130-400) 08/04/17 07:01 MPV 8.4 fL (7.2-11.7) 08/04/17 07:01 Neut % (Auto) 64.1 % (50.0-75.0) 08/04/17 07:01 Lymph % (Auto) 26.3 % (20.0-40.0) 08/04/17 07:01 [place] % (Auto) 5.9 % (0.0-10.0) 08/04/17 07:01 Eos % (Auto) 2.4 % (0.0-4.0) 08/04/17 07:01 Baso % (Auto) 1.3 % (0.0-2.0) 08/04/17 07:01 Neut # (Auto) 4.2 K/uL (1.8-7.0) 08/04/17 07:01 Lymph # (Auto) 1.7 K/uL (1.0-4.3) 08/04/17 07:01 [place] # (Auto) 0.4 K/uL (0.0-0.8) 08/04/17 07:01 Eos # (Auto) 0.2 K/uL (0.0-0.7) 08/04/17 07:01 Baso # (Auto) 0.1 K/uL (0.0-0.2) 08/04/17 07:01 Sodium 138 mmol/L (132-148) 08/04/17 07:01 Potassium 3.9 mmol/L (3.6-5.2) 08/04/17 07:01 Chloride 104 mmol/L (98-107) 08/04/17 07:01 Carbon Dioxide 24 mmol/L (22-30) 08/04/17 07:01 Anion Gap 13 (10-20) 08/04/17 07:01 BUN 15 mg/dL (9-20) 08/04/17 07:01 Creatinine 0.7 mg/dL (0.8-1.5) L 08/04/17 07:01 Est GFR ( Amer) > 60 08/04/17 07:01 Est GFR (Non-Af Amer) > 60 08/04/17 07:01 POC Glucose (mg/dL) 94 mg/dL (65-110) 08/04/17 10:54 Random Glucose 95 mg/dL (75-110) 08/04/17 07:01 Hemoglobin A1c 5.5 % (4.2-6.5) 08/03/17 04:52 Calcium 8.7 mg/dl (8.6-10.4) 08/04/17 07:01 Phosphorus 4.5 mg/dL (2.5-4.5) 08/04/17 07:01 Magnesium 2.2 mg/dL (1.6-2.3) 08/04/17 07:01 Total Bilirubin 0.7 mg/dL (0.2-1.3) 08/04/17 07:01 AST 101 U/L (17-59) H D 08/04/17 07:01 ALT 63 U/L (21-72) 08/04/17 07:01 Alkaline Phosphatase 111 U/L (38-126) 08/04/17 07:01 Total Creatine Kinase 228 U/L (55-170) H 08/03/17 05:40 CK-MB (Mass) 1.34 ng/mL (0.0-3.38) 08/03/17 05:40 Troponin I < 0.0120 ng/mL (0.00-0.120) 08/03/17 05:40 Total Protein 7.4 g/dL (6.3-8.3) 08/04/17 07:01 Albumin 4.1 g/dL (3.5-5.0) 08/04/17 07:01 Globulin 3.3 gm/dL (2.2-3.9) 08/04/17 07:01 Albumin/Globulin Ratio 1.2 (1.0-2.1) 08/04/17 07:01 Triglycerides 431 mg/dL (0-149) H D 08/03/17 04:52 Cholesterol 238 mg/dL (0-199) H 08/03/17 04:52 LDL Cholesterol Direct 160 mg/dL (0-129) H 08/03/17 04:52 HDL Cholesterol 60 mg/dL (30-70) 08/03/17 04:52 Free T4 0.72 ng/dL (0.78-2.19) L 08/03/17 04:52 TSH 3rd Generation 8.12 mIU/L (0.46-4.68) H 08/03/17 04:52 Urine Color Straw (YELLOW) 08/02/17 16:55 Urine Clarity Clear (Clear) 08/02/17 16:55 Urine pH 8.0 (5.0-8.0) 08/02/17 16:55 Ur Specific [place] 1.011 (1.003-1.030) 08/02/17 16:55 Urine Protein Negative mg/dL (NEGATIVE) 08/02/17 16:55 Urine Glucose (UA) Normal mg/dL (Normal) 08/02/17 16:55 Urine Ketones Negative mg/dL (NEGATIVE) 08/02/17 16:55 Urine Blood Trace-intact (NEGATIVE) 08/02/17 16:55 Urine Nitrate Negative (NEGATIVE) 08/02/17 16:55 Urine Bilirubin Negative (NEGATIVE) 08/02/17 16:55 Urine Urobilinogen Normal mg/dL (0.2-1.0) 08/02/17 16:55 Ur Leukocyte Esterase Neg Josee/uL (Negative) 08/02/17 16:55 Urine WBC (Auto) < 1 /hpf (0-5) 08/02/17 16:55 Urine RBC (Auto) 2 /hpf (0-3) 08/02/17 16:55 Alcohol, Quantitative < 10 mg/dl (0-10) 08/02/17 20:36 Attending/Attestation - Attestation I have personally seen and examined this patient.: Yes I have fully participated in the care of the patient.: Yes I have reviewed all pertinent clinical information, including history, physical exam and plan: Yes Notes (Text): Medical attending: Patient was seen and examined by me, agrees the above note by the medical laboratory technicians. The patient reported that his headache had resolved today. As documented above the resident note he initially came to the hospital due to hypertensive urgency. His systolic blood pressure was greater than 200. He was not taking his medication for at least 3-4 months he says. He was restarted on his previous medications that he told us about. And while here he's done quite well. This morning his systolic blood pressures were much lower. Family members were present talking to him as well. He was also evaluated by psychiatry, the patient tells us that he's under a lot of family stress at this moment and quite anxious. He is given prescriptions for Coreg, losartan, Crestor and he should also take [id number] aspirin 81 mg as well. Thank you very much, Ger Sevilla
--- NOTE | 2017-08-04 12:20 | CARD ---
APPROVED REPORT EKG Measurement Heart [id number] NM 182P31 [id number] <Conclusion> Normal sinus rhythm Incomplete right bundle branch block Left anterior fascicular block Minimal voltage criteria for LVH, may be normal variant Abnormal ECG
--- NOTE | 2017-08-04 12:20 | CARD ---
APPROVED REPORT EKG Measurement Heart [id number] IN 162P27 [id number] <Conclusion> Normal sinus rhythm Left anterior fascicular block Prolonged QT Abnormal ECG
--- NOTE | 2017-08-04 19:29 | CARD ---
APPROVED REPORT EKG Measurement Heart [id number] CT 188P43 [id number] <Conclusion> Normal sinus rhythm Incomplete right bundle branch block Left anterior fascicular block ST & T wave abnormality, Abnormal ECG
== END 2017-08-04 13:59 | disposition home or self-care (01) ==
LOC: C.ER 09:54 → C.9E 13:31 → C.5S 08-03 04:01
PROVIDERS: ADMIT Hospitalist; ATTEND Hospitalist
DX: I16.0 Hypertensive urgency (principal); I10 Essential (primary) hypertension; R06.02 Shortness of breath; R07.1 Chest pain on breathing; Z91.14 Patient's other noncompliance with medication regimen; E78.5 Hyperlipidemia, unspecified; E87.6 Hypokalemia; F43.21 Adjustment disorder with depressed mood; Z79.899 Other long term (current) drug therapy; I07.1 Rheumatic tricuspid insufficiency; E78.00 Pure hypercholesterolemia, unspecified
CPT/HCPCS: 36415; 70450; 71045; 80053; 80061; 80320; 81001; 82948; 83036; 83735; 84100; 84439; 84443; 84484; 85025; 93005; 93306; 96374; 99285; C9113; G0378; J0360; J1644

== ENCOUNTER 2017-10-03 09:21 | Emergency (ER) | payer OTHER ==
[2017-10-03 09:26] VITALS: BMI 26.6
[2017-10-03 09:31] VITALS: BP 166/82; PULSE 99; RESP 18; TEMP 98.6; O2SAT 96
--- NOTE | 2017-10-03 10:36 | C.PDOC ---
History Of Present Illness 47 year old male presents to the emergency department with complaints of pain and swelling to his right knee for last several days. 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 Patient denies fever/chills, senory changes, discharge or bleeding, trauma. Time Seen by Provider: 10/03/17 09:32 Chief Complaint (Nursing): Lower Extremity Problem/Injury History Per: Patient History/Exam Limitations: no limitations Onset/Duration Of Symptoms: Days Current Symptoms Are (Timing): Still Present Severity: Mild Past Medical History Reviewed: Historical Data, Nursing Documentation, Vital Signs Vital Signs: Last Vital Signs Temp 98.6 F 10/03/17 09:40 Pulse 99 H 10/03/17 09:40 Resp 18 10/03/17 09:40 BP 166/82 H 10/03/17 09:40 Pulse Ox 96 10/03/17 11:29 - Medical History PMH: HTN, Hypercholesterolemia, Hyperlipidemia - [facility] Procedures INTRODUCTION OF SERUM/TOX/VACCINE INTO MUSCLE, PERC APPROACH (12/30/16) Family History: States: No Known Family Hx - Social History Hx Tobacco Use: No Hx Alcohol Use: Yes Hx Substance Use: No - Immunization History Hx Tetanus Toxoid Vaccination: No Hx Influenza Vaccination: No Hx Pneumococcal Vaccination: No Review Of Systems Constitutional: Negative for: Fever, Chills Cardiovascular: Negative for: Chest Pain Respiratory: Negative for: Shortness of Breath Gastrointestinal: Negative for: Nausea, Vomiting, Abdominal Pain Musculoskeletal: Positive for: Other (Pain and swelling to right knee) Skin: Negative for: Rash Neurological: Negative for: Weakness, Numbness Physical Exam - Physical Exam Appears: Well, Non-toxic, No Acute Distress Skin: Warm, Dry, No Rash Head: Normacephalic Oral Mucosa: Moist Throat: Normal, No Erythema, No Exudate, No Drooling Lymphatic: No Adenopathy Cardiovascular: Rhythm Regular Respiratory: Normal Breath Sounds, No Rales, No Rhonchi, No Wheezing Extremity: Normal ROM, No Calf Tenderness, Capillary Refill (< 2 sec all digits ), No Deformity, Swelling (Mild swelling immediately distal to R patella, (+) mildly tender to palpation), Other (No erythema or fluctuance; ROM intact) Pulses: Left Dorsalis Pedis: Normal, Right Dorsalis Pedis: Normal Neurological/Psych: Oriented x3, Normal Motor, Normal Sensation Gait: Steady ED Course And Treatment O2 Sat by Pulse Oximetry: 96 (RA) Pulse Ox Interpretation: Normal - Other Rad Right Knee X-Ray X-Ray: Read By Radiologist Interpretation: FINDINGS: BONES: No acute fracture or destructive bony lesion identified. JOINTS: Normal. No osteoarthritis. JOINT EFFUSION: None. OTHER FINDINGS: None. IMPRESSION: Unremarkable radiographs of the right knee. Progress Note: Right Knee X-Ray ordered and reviewed. Patient given PO Ibuprofen in ED. X-Ray showed no acute bony injury. Patient also requesting something for sore throat, has mild sore throat and runny nose. Rxs for Ibuprofen and chloraseptic spray given. Patient instructed to use knee pads for work, and to follow up with PMD/clinic in 1-2 days. He understands he should return to ED if symptoms worsen. Reevaluation Time: 10:40 Reassessment Condition: Improved Disposition Counseled Patient/Family Regarding: Studies Performed, Diagnosis, Need For Followup, Rx Given - Disposition Referrals: Fox Guzmán MD [Medical Doctor] - Disposition: HOME/ ROUTINE Disposition Time: 10:40 Condition: STABLE Prescriptions: Ibuprofen [Motrin Tab] 600 mg PO Q6 PRN #30 tab PRN Reason: fever/pain Phenol/Glycerin [Chloraseptic [place]] 1 spray MM Q6 PRN #1 spray PRN Reason: THROAT PAIN Instructions: Sore Throat, Adult (DC), Knee Sprain (DC) Forms: [facility] ([place]) Print Language: KOREAN - Clinical Impression Clinical Impression: Viral pharyngitis, Right knee sprain - Scribe Statement The provider has reviewed the documentation as recorded by the Nathanael Edwards Provider Attestation: All medical record entries made by the Joseibneal were at my direction and personally dictated by me. I have reviewed the chart and agree that the record accurately reflects my personal performance of the history, physical exam, medical decision making, and the department course for this patient. I have also personally directed, reviewed, and agree with the discharge instructions and disposition.
--- NOTE | 2017-10-03 11:00 | RAD ---
Date of service: 10/03/2017 PROCEDURE: Right Knee Radiographs. HISTORY: right knee pain COMPARISON: None. FINDINGS: BONES: No acute fracture or destructive bony lesion identified. JOINTS: Normal. No osteoarthritis. JOINT EFFUSION: None. OTHER FINDINGS: None. IMPRESSION: Unremarkable radiographs of the right knee.
== END 2017-10-03 10:54 | disposition home or self-care (01) ==
LOC: C.ER 09:21
DX: S83.91XA Sprain of unspecified site of right knee, initial encounter (principal); X58.XXXA Exposure to other specified factors, initial encounter; E78.00 Pure hypercholesterolemia, unspecified; I10 Essential (primary) hypertension; E78.5 Hyperlipidemia, unspecified

== ENCOUNTER 2017-10-06 18:06 | Emergency (ER) | payer OTHER ==
[2017-10-06 18:06] VITALS: BMI 26.6
[2017-10-06 18:11] VITALS: BP 151/110; PULSE 100; RESP 20; TEMP 98.6; O2SAT 98
--- NOTE | 2017-10-06 18:25 | C.PDOC ---
History Of Present Illness 47 year old male patient presents to the ER with c/o right knee pain. Patient reports he was here x3 days ago for evaluation. Patient received an XR on 04/06 and 10/03, both show negative. Patient was told to come back if pain persists. Patient notes he takes Motrin 1 tab/daily. Denies weakness and numbness. Chief Complaint (Nursing): Lower Extremity Problem/Injury History Per: Patient History/Exam Limitations: no limitations Onset/Duration Of Symptoms: Days (x3 ) Current Symptoms Are (Timing): Still Present Past Medical History Reviewed: Historical Data, Nursing Documentation, Vital Signs Vital Signs: Last Vital Signs Temp 98.6 F 10/06/17 18:09 Pulse 100 H 10/06/17 18:09 Resp 20 10/06/17 18:09 BP 151/110 H 10/06/17 18:09 Pulse Ox 98 10/06/17 18:34 - Medical History PMH: HTN, Hypercholesterolemia, Hyperlipidemia - [facility] Procedures INTRODUCTION OF SERUM/TOX/VACCINE INTO MUSCLE, PERC APPROACH (12/30/16) Family History: States: Unknown Family Hx - Social History Hx Tobacco Use: No Hx Alcohol Use: Yes Hx Substance Use: No - Immunization History Hx Tetanus Toxoid Vaccination: No Hx Influenza Vaccination: No Hx Pneumococcal Vaccination: No Review Of Systems Except As Marked, All Systems Reviewed And Found Negative. Musculoskeletal: Positive for: Leg Pain (right knee) Neurological: Negative for: Weakness, Numbness Physical Exam - Physical Exam Appears: Non-toxic, No Acute Distress Skin: Normal Color, Warm, Dry Head: Atraumatic, Normacephalic Extremity: Tenderness (above patella and proximal to the knee. ), No Pedal Edema , No Calf Tenderness, Capillary Refill (<2 sec ), No Deformity, No Swelling Pulses: Left Dorsalis Pedis: Normal, Right Dorsalis Pedis: Normal Neurological/Psych: Oriented x3, Normal Speech, Normal Motor, Normal Sensation ED Course And Treatment O2 Sat by Pulse Oximetry: 98 (RA) Pulse Ox Interpretation: Normal Medical Decision Making Medical Decision Making: Impression: right knee pain Reassess: Patient is resting comfortably. Patient is told to take Motrin x1 every 6 hours. Patient is advised to come back if condition worsens. Disposition - Disposition Referrals: [facility] [place]Outside] [facility] [Outside] [facility] [place] [Outside] Disposition: HOME/ ROUTINE Disposition Time: 18:33 Condition: IMPROVED Additional Instructions: Take the motrin every 6 hours and apply ice pack as tolerated and elevate the leg as often as possible. Forms: [facility] (Burundian) - Clinical Impression Clinical Impression: Knee pain - Scribe Statement The provider has reviewed the documentation as recorded by the Scribe Christiana Harmon Provider Attestation: All medical record entries made by the Scribe were at my direction and personally dictated by me. I have reviewed the chart and agree that the record accurately reflects my personal performance of the history, physical exam, medical decision making, and the department course for this patient. I have also personally directed, reviewed, and agree with the discharge instructions and disposition.
--- NOTE | 2017-10-06 18:29 | C.PDOC ---
Chief Complaint (Nursing): Lower Extremity Problem/Injury Past Medical History Vital Signs: Last Vital Signs Temp 98.6 F 10/06/17 18:09 Pulse 100 H 10/06/17 18:09 Resp 20 10/06/17 18:09 BP 151/110 H 10/06/17 18:09 Pulse Ox 98 10/06/17 18:09 - Medical History PMH: HTN, Hypercholesterolemia, Hyperlipidemia Denies: HIV, Chronic Kidney Disease - [facility] Procedures INTRODUCTION OF SERUM/TOX/VACCINE INTO MUSCLE, PERC APPROACH (12/30/16) Family History: States: Unknown Family Hx - Social History Hx Tobacco Use: No Hx Alcohol Use: Yes Hx Substance Use: No - Immunization History Hx Tetanus Toxoid Vaccination: No Hx Influenza Vaccination: No Hx Pneumococcal Vaccination: No ED Course And Treatment O2 Sat by Pulse Oximetry: 98 Disposition - Disposition
== END 2017-10-06 18:42 | disposition home or self-care (01) ==
LOC: C.ER 18:06
DX: M25.561 Pain in right knee (principal)

== ENCOUNTER 2017-10-24 10:18 | Emergency (ER) | payer OTHER ==
[2017-10-24 10:18] VITALS: BMI 26.6
[2017-10-24 10:27] VITALS: RESP 18
--- NOTE | 2017-10-24 11:14 | C.PDOC ---
History Of Present Illness 47 year old male patient with PMHx of HTN comes in for evaluation of pruritic rash that gradually developed for the past few days. Patient reports he lost sleep due to the itchy rash. Patient denies recent illness, abx use, throat swelling, throat tightness, chest pain, SOB, palpitation, cough, abdominal pain , nausea and vomiting. Patient admits to being non-compliant with his HTN medications. Patient was seen here 2 weeks ago with knee pain and given prescription for ibuprofen. Time Seen by Provider: 10/24/17 10:32 Chief Complaint (Nursing): Abnormal Skin Integrity History Per: Patient History/Exam Limitations: no limitations Onset/Duration Of Symptoms: Days, Gradual Current Symptoms Are (Timing): Still Present Quality Of Symptoms: Itching Past Medical History Reviewed: Historical Data, Nursing Documentation, Vital Signs Vital Signs: Last Vital Signs Temp 98.1 F 10/24/17 11:36 Pulse 73 10/24/17 11:36 Resp 18 10/24/17 11:36 BP 144/96 H 10/24/17 11:36 Pulse Ox 97 10/24/17 11:36 - Medical History PMH: HTN, Hypercholesterolemia, Hyperlipidemia - [facility] Procedures INTRODUCTION OF SERUM/TOX/VACCINE INTO MUSCLE, PERC APPROACH (12/30/16) Family History: States: Unknown Family Hx - Social History Hx Tobacco Use: No Hx Alcohol Use: Yes Hx Substance Use: No - Immunization History Hx Tetanus Toxoid Vaccination: No Hx Influenza Vaccination: No Hx Pneumococcal Vaccination: No Review Of Systems Except As Marked, All Systems Reviewed And Found Negative. Constitutional: Negative for: Other (recent illness and abx use ) ENT: Negative for: Throat Swelling, Other (throat tightness) Cardiovascular: Negative for: Chest Pain, Palpitations Respiratory: Negative for: Cough, Shortness of Breath Gastrointestinal: Negative for: Nausea, Vomiting, Abdominal Pain Skin: Positive for: Rash (pruritic; gradual) Physical Exam - Physical Exam Appears: Well, Non-toxic, No Acute Distress Skin: Normal Color, Warm, Dry, Rash (diffuse urticaria rash to neck, b/l arms, and lower back. ), No Other (no cellulitis) Eye(s): bilateral: Normal Inspection, PERRL, EOMI Ear(s): Bilateral: Normal Nose: Normal Oral Mucosa: Moist Tongue: Normal Appearing Lips: Normal Appearing Throat: Normal Neck: Normal ROM, Supple Cardiovascular: Rhythm Regular Respiratory: Normal Breath Sounds Gastrointestinal/Abdominal: Soft, No Tenderness Extremity: Normal ROM (x4) Neurological/Psych: Oriented x3, Normal Speech ED Course And Treatment O2 Sat by Pulse Oximetry: 100 (RA) Pulse Ox Interpretation: Normal Progress Note: Impression: pruritic rash for a couple days. Plans: -- Benadryl. -- pepcid. -- prednisone. Reassess: Patient is resting comfortably. On re-eval, pt is afebrile, hemodynamically stable. Non-toxic. Tolerate PO well in ED. PulseOx 100% on RA. ENT: no acute findings. Uvula midline, no edema. Neck: Supple, (-) JVD. Lungs: CTA B/L, BS equal B/L. Abd: Soft, non-tender. Neurologically intact. Patient given Rx for ibuprofen. Patient is instructed to stop use of any new medications and to take BP medications daily. Patient also instructed to f/u with PMD in 1-2 and to return if condition worsens. Disposition Counseled Patient/Family Regarding: Diagnosis, Need For Followup - Disposition Referrals: [facility] [Outside] Disposition: HOME/ ROUTINE Disposition Time: 11:17 Condition: STABLE Additional Instructions: STOP ANY NEW MEDICATION DUE TO POSSIBLE ALLERGIC REACTION TAKE BP MEDICATION PRESCRIBED DAILY FOLLOW UP WITH PMD IN 1-2 DAYS FOR RE-EVALUATION.R RETURN TO ED IF ANY WORSENING OR NEW CHANGES. 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 - Scribe Statement The provider has reviewed the documentation as recorded by the Scribe Villeda Do All medical record entries made by the Scribe were at my direction and personally dictated by me. I have reviewed the chart and agree that the record accurately reflects my personal performance of the history, physical exam, medical decision making, and the department course for this patient. I have also personally directed, reviewed, and agree with the discharge instructions and disposition.
[2017-10-24 11:38] VITALS: BP 144/96; PULSE 73; TEMP 98.1
[2017-10-24 11:41] VITALS: O2SAT 100
== END 2017-10-24 11:45 | disposition home or self-care (01) ==
LOC: C.ER 10:18
DX: L50.9 Urticaria, unspecified (principal); I10 Essential (primary) hypertension; E78.00 Pure hypercholesterolemia, unspecified

== ENCOUNTER 2017-11-28 12:06 | Emergency (ER) | payer OTHER ==
[2017-11-28 12:09] VITALS: BMI 26.6
[2017-11-28 12:16] VITALS: TEMP 98.5
--- NOTE | 2017-11-28 12:56 | C.PDOC ---
History Of Present Illness 47 year old male presents to ED complaining that his head feels full, and pressure to the back of his head. Patient reports the symptoms were worse in the morning. Patient states he is a heavy drinker and drank 8 beers last night. Patient states he is on blood pressure medication and is compliant. Denies fever, chills, chest pain, nausea, vomiting, weakness, numbness. Time Seen by Provider: 11/28/17 12:31 Chief Complaint (Nursing): Chest Pain History Per: Patient History/Exam Limitations: no limitations Onset/Duration Of Symptoms: Days Current Symptoms Are (Timing): Still Present Past Medical History Reviewed: Historical Data, Nursing Documentation, Vital Signs Vital Signs: Last Vital Signs Temp 98.5 F 11/28/17 12:13 Pulse 96 H 11/28/17 12:13 Resp 19 11/28/17 12:13 BP 164/104 H 11/28/17 12:13 Pulse Ox 97 11/28/17 12:13 - Medical History PMH: HTN, Hypercholesterolemia, Hyperlipidemia Denies: HIV, Chronic Kidney Disease Surgical History: No Surg Hx - [facility] Procedures INTRODUCTION OF SERUM/TOX/VACCINE INTO MUSCLE, PERC APPROACH (12/30/16) Family History: States: No Known Family Hx - Social History Hx Tobacco Use: No Hx Alcohol Use: Yes Hx Substance Use: No - Immunization History Hx Tetanus Toxoid Vaccination: No Hx Influenza Vaccination: No Hx Pneumococcal Vaccination: No Review Of Systems Except As Marked, All Systems Reviewed And Found Negative. Constitutional: Positive for: Fever, Chills Cardiovascular: Negative for: Chest Pain Respiratory: Negative for: Cough, Shortness of Breath Gastrointestinal: Negative for: Nausea, Vomiting Neurological: Positive for: Other (Head feels full. Pressure to back of the head.). Negative for: Weakness, Numbness Physical Exam - Physical Exam Appears: Non-toxic, No Acute Distress, Other (Mildly anxious. Asleep on inital exam. ) Skin: Warm, Dry Head: Atraumatic, Normacephalic Eye(s): bilateral: PERRL, EOMI Oral Mucosa: Moist Neck: Supple Chest: Symmetrical, No Deformity Cardiovascular: Rhythm Regular, No Murmur Respiratory: Normal Breath Sounds, No Rales, No Rhonchi, No Wheezing Gastrointestinal/Abdominal: Soft, No Tenderness Neurological/Psych: Oriented x3 ED Course And Treatment ECG: Interpreted By Me ECG Rhythm: Sinus Rhythm ECG Interpretation: Normal Rate From EC O2 Sat by Pulse Oximetry: 97 (RA) Pulse Ox Interpretation: Normal Medical Decision Making Medical Decision Making: persistent alcohol abuse and withdrawal symptoms. h/o many visits for same. pt with poor HTN meds compliance. poor insight in to alcohol abuse educated normal ekg and no s/s of cp now Librium given, pt feels better enforces suspected w/d s/s. Plan: * Cozaar * Librium Disposition Doctor Will See Patient In The: Office Counseled Patient/Family Regarding: Studies Performed, Diagnosis - Disposition Referrals: [facility] [Outside] [facility] [Outside] [facility] [Outside] [facility] [Outside] [facility] [Outside] [facility] [Outside] Disposition: HOME/ ROUTINE Disposition Time: 13:06 Condition: GOOD Additional Instructions: justyn de loretta augusta cerveza bravo 2 cervezas por deandre Sigue up Losartan 100 mg diario sherri en la [place]ana Sigue con la [facility] para hacer meliza Prescriptions: Losartan Potassium [Cozaar] 100 mg PO DAILY #30 tablet Instructions: Alcohol Use - When Is Drinking a Problem?, High Blood Pressure in Adults, Effects of Alcohol on Your Health Forms: [employer] (Sammarinese) Print Language: ARMENIAN - Clinical Impression Clinical Impression: Flushing, Hypertension - Scribe Statement The provider has reviewed the documentation as recorded by the Nathanael Ch[place] Chase Provider Attestation: All medical record entries made by the Joseibneal were at my direction and personally dictated by me. I have reviewed the chart and agree that the record accurately reflects my personal performance of the history, physical exam, medical decision making, and the department course for this patient. I have also personally directed, reviewed, and agree with the discharge instructions and disposition.
[2017-11-28 13:11] VITALS: BP 172/101; PULSE 94; RESP 14
[2017-11-28 15:56] VITALS: O2SAT 97
--- NOTE | 2017-12-01 19:37 | CARD ---
APPROVED REPORT Date of service: 11/28/2017 EKG Measurement Heart [id number] <Conclusion> Normal sinus rhythm Incomplete right bundle branch block Left anterior fascicular block Abnormal ECG
== END 2017-11-28 13:16 | disposition home or self-care (01) ==
LOC: C.ER 12:06
DX: I10 Essential (primary) hypertension (principal); R23.2 Flushing

== ENCOUNTER 2017-12-28 12:05 | Observation (INO) | payer MEDICAID, OTHER ==
[2017-12-28 12:05] VITALS: BMI 26.6
--- NOTE | 2017-12-28 13:36 | C.PDOC ---
History Of Present Illness 47yo male, right hand dominant, comes to ER reporting recurrent left arm "heaviness" that is worsening today. Patient reports he has had similar heaviness intermittently every morning this past week. He states the symptoms usually resolve of their own, however the heaviness is persistent today, prompting the ER visit. Of note, patient is a poor historian and a glove cutter was used to obtain the history. Patient denies any weakness in his arm and states it feels like the arm is "sleeping." Patient states he is compliant with his medications but does not follow up with a PMD. Prior records reviewed and patient has had multiple ER visits for medication refill despite patient counseling regarding appropriate follow up with a PMD. Time Seen by Provider: 12/28/17 12:59 Chief Complaint (Nursing): Weakness/Neurological Deficit History Per: Desk Maker Onset/Duration Of Symptoms: Days, Intermittent Episodes, Persistent Current Symptoms Are (Timing): Still Present Additional History Per: Patient Past Medical History Reviewed: Historical Data, Nursing Documentation, Vital Signs Vital Signs: Last Vital Signs Temp 98.6 F 12/28/17 12:18 Pulse 84 12/28/17 12:18 Resp 20 12/28/17 12:18 BP 162/108 H 12/28/17 12:18 Pulse Ox 97 12/28/17 12:18 - Medical History PMH: HTN, Hypercholesterolemia, Hyperlipidemia Denies: HIV, Chronic Kidney Disease Surgical History: No Surg Hx - [facility] Procedures INTRODUCTION OF SERUM/TOX/VACCINE INTO MUSCLE, PERC APPROACH (12/30/16) Family History: States: No Known Family Hx - Social History Hx Tobacco Use: No Hx Alcohol Use: Yes Hx Substance Use: No - Immunization History Hx Tetanus Toxoid Vaccination: No Hx Influenza Vaccination: No Hx Pneumococcal Vaccination: No Review Of Systems Except As Marked, All Systems Reviewed And Found Negative. Musculoskeletal: Positive for: Other (left arm "heaviness") Neurological: Negative for: Weakness Physical Exam - Physical Exam Appears: Non-toxic, No Acute Distress Skin: Normal Color Head: Atraumatic, Normacephalic Eye(s): bilateral: Normal Inspection Neck: Supple Chest: Symmetrical Cardiovascular: Rhythm Regular Respiratory: Normal Breath Sounds Extremity: Normal ROM (full ROM bilateral upper extremities), No Deformity, No Swelling Neurological/Psych: Oriented x3, Other (see NIH) ED Course And Treatment - Laboratory Results Result Diagrams: 12/28/17 14:14 12/28/17 14:14 O2 Sat by Pulse Oximetry: 97 (RA) Pulse Ox Interpretation: Normal - Other Rad CXR X-Ray: Interpreted by Me (negative) - CT Scan/US CT Head Other Rad Studies (CT/US): Radiology Report Reviewed CT/US Interpretation: FINDINGS: HEMORRHAGE: No intracranial hemorrhage. BRAIN: There is minimal diffuse/confluent chronic periventricular white matter ischemic changes seen extending from the periventricular into the deep white matter both cerebral hemispheres. In addition, there appears to be a small chronic appearing lacunar type infarct left centrum semiovale and possibly left anterior frontal subcortical white matter. No edema or mass effect. No parenchymal or extra-axial masses or collections. The the. Moderate generalized volume loss. VENTRICLES: No obstructive hydrocephalus. CALVARIUM: There are no acute calvarial fractures however note made old fracture de formities both lamina papyracea. PARANASAL SINUSES: Unremarkable as visualized. No significant inflammatory changes. MASTOID AIR CELLS: Unremarkable as visualized. No inflammatory changes. OTHER FINDINGS: None. IMPRESSION: There is minimal diffuse/confluent chronic periventricular white matter ischemic changes seen extending from the periventricular into the deep white matter both cerebral hemispheres. In addition, there appears to be a small chronic appearing lacunar type infarct left centrum semiovale and possibly left anterior frontal subcortical white matter. Moderate generalized volume loss NIHSS Stroke Scale - Date/Time Evaluation Performed Date Performed: 12/28/17 Time Performed: 13:35 When Was NIHSS Performed: Baseline - How Severe is the Stroke Level of Consciousness: 0=Alert LOC to Questions: 0=Both comments correct LOC to commands: 0=Obeys both correctly Best Gaze: 0=Normal Visual: 0=No visual loss Facial: 0=Normal Motor Arm - Left: 0=No drift Motor Arm - Right: 0=No drift Motor Leg - Left: 0=No drift Motor Leg - Right: 0=No drift Limb Ataxia: 0=Absent Sensory: 1=Mild to moderate loss Best Language: 0=No aphasia Dysarthia: 0=Normal articulation Extinction & Inattention (Neglect): 0=Normal, no object Score: 1 rTPA Inclusion/Exclusion - Refusal of Treatment Patient Refused Treatment: No - Inclusion Criteria for Altepase Patient is 18 years or Older: Yes The Clinical Diagnosis of Ischemic Stroke That is Causing a Potentially Disabling Neurological Deficit: Yes Time of Onset is Well Established to be Less Than 270 Minute Before Treatment Would Begin: No Risk/Benefit Discussed With Patient/Family Member Present: Yes - Exclusion Criteria for Altepase Uncontrolled Hypertension at Time of Treatment (Systolic BP above 185 or Diastolic BP above 110 mmHg): No Active Internal Bleeding: No Known Bleeding Diathesis Including but Not Limited to: Platelets Below 100,000/mm,PTT Above 40 sec After Heparin Use, Current Use of Oral Anitcoagulant With INR Greater Than 1.7 or PT Greater Than 15 secs: No Evidence of an Intracranial Hemorrhage: No Evidence of Major Acute Infarct With Signs Greater Than 1/3 MCA Territory: No Suspicion of Subarachnoid Hemorrhage on Pretreatment Evaluation Even if CT Head Negative For Hemorrhage: No - Warning to TPA With Conditions Following Conditions Weighed Against Anticipated Benefit: Yes Condition: Stroke Serevity Too Mild Medical Decision Making Medical Decision Making: Impression: 47yo male with "heaviness" in left arm Plan: * Labs * CT Head w/o contrast * Aspirin 325mg PO * IV Fluids Disposition Counseled Patient/Family Regarding: Studies Performed, Diagnosis - Disposition Disposition: HOSPITALIZED Disposition Time: 15:15 Condition: STABLE - Clinical Impression Clinical Impression: TIA (transient ischemic attack), Paresthesia - Scribe Statement The provider has reviewed the documentation as recorded by the Nathanael Smith Provider Attestation: All medical record entries made by the Nathanael were at my direction and personally dictated by me. I have reviewed the chart and agree that the record accurately reflects my personal performance of the history, physical exam, medical decision making, and the department course for this patient. I have also personally directed, reviewed, and agree with the discharge instructions and disposition.
[2017-12-28] MEDS: Sodium Chloride 0.9% 1,000 ML IV SCH ×2 (14:13→23:00)
[2017-12-28] MEDS ORDERED: Sodium Chloride 0.9% 1,000 ML ONE (14:14)
[2017-12-28 14:21] LABS: BASO # 0.1 K/uL (0.0-0.2); EOS # 0.1 K/uL (0.0-0.7); EOS % 0.7 % (0.0-4.0); HEMOGLOBIN 14.8 g/dL (12.0-18.0); LYMPH # 1.9 K/uL (1.0-4.3); LYMPH % 18.5 % (20.0-40.0); MEAN CELL VOLUME 90.1 fL (80.0-94.0); MEAN CORPUSCULAR HGB CONC 34.4 g/dL (33.0-37.0); MEAN PLATELET VOLUME 8.1 fL (7.2-11.7); MONO # 0.8 K/uL (0.0-0.8); MONO % 7.5 % (0.0-10.0); NEUT # 7.4 K/uL (1.8-7.0); NEUT % 72.3 % (50.0-75.0); NRBC % 0.1 % (0.0-2.0); RBC 4.76 Mil/uL (4.40-5.90); RED CELL DISTRIBUTION WIDTH 13.3 % (11.5-14.5); WHITE BLOOD COUNT 10.2 K/uL (4.8-10.8)
[2017-12-28 14:30] LABS: PROTHROMBIN TIME 11.4 SECONDS (9.7-12.2)
[2017-12-28 14:32] LABS: ALB/GLOB RATIO 1.4 (1.0-2.1); ALBUMIN 4.4 g/dL (3.5-5.0); ALT/SGPT 77 U/L (21-72); AST/SGOT 65 U/L (17-59); BLOOD UREA NITROGEN 7 mg/dL (9-20); CALCIUM 8.2 mg/dl (8.6-10.4); GFR NON-AFRICAN AMERICAN > 60; HDL CHOLESTEROL 72 mg/dL (30-70)
--- NOTE | 2017-12-28 14:41 | RAD ---
Date of service: 12/28/2017 HISTORY: Headache COMPARISON: 08/02/2017 FINDINGS: LUNGS: No active pulmonary disease. PLEURA: No significant pleural effusion identified, no pneumothorax apparent. CARDIOVASCULAR: No atherosclerotic calcification present Normal. OSSEOUS STRUCTURES: No significant abnormalities. VISUALIZED UPPER ABDOMEN: Normal. OTHER FINDINGS: None. IMPRESSION: No active disease. No significant interval change compared to the prior examination(s). Concordant results with the preliminary interpretation rendered by the emergency department physician procedure.
[2017-12-28 14:42] LABS: LDL CHOLESTEROL 171 mg/dL (0-129)
--- NOTE | 2017-12-28 14:59 | CT ---
Date of service: 12/28/2017 PROCEDURE: CT HEAD WITHOUT CONTRAST. HISTORY: LUE PARESTHESIA COMPARISON: Comparison made with prior CT scan of the brain 08/02/2017. TECHNIQUE: Axial computed tomography images were obtained through the head/brain without intravenous contrast. Radiation dose: Total exam DLP = 1128.9 mGy-cm. This CT exam was performed using one or more of the following dose reduction techniques: Automated exposure control, adjustment of the mA and/or kV according to patient size, and/or use of iterative reconstruction technique. FINDINGS: HEMORRHAGE: No intracranial hemorrhage. BRAIN: There is minimal diffuse/confluent chronic periventricular white matter ischemic changes seen extending from the periventricular into the deep white matter both cerebral hemispheres. In addition, there appears to be a small chronic appearing lacunar type infarct left centrum semiovale and possibly left anterior frontal subcortical white matter. No edema or mass effect. No parenchymal or extra-axial masses or collections. The the Moderate generalized volume loss. VENTRICLES: No obstructive hydrocephalus. CALVARIUM: There are no acute calvarial fractures however note made old fracture deformities both lamina papyracea. PARANASAL SINUSES: Unremarkable as visualized. No significant inflammatory changes. MASTOID AIR CELLS: Unremarkable as visualized. No inflammatory changes. OTHER FINDINGS: None. IMPRESSION: There is minimal diffuse/confluent chronic periventricular white matter ischemic changes seen extending from the periventricular into the deep white matter both cerebral hemispheres. In addition, there appears to be a small chronic appearing lacunar type infarct left centrum semiovale and possibly left anterior frontal subcortical white matter. Moderate generalized volume loss See above discussion for additional details and findings
--- NOTE | 2017-12-28 16:22 | CP.PCM.HP ---
<Loki Butler M - Last Filed: 12/28/17 16:49> History of Present Illness - History of Present Illness History of Present Illness: H&P for Hospitalist Dr. Cruz 47M w/ PMHx: of HTN & HLD presents to ED for intermittent numbness and tingling in his left hand, ongoing for the past week. Patient states most recent episode woke him up at 6AM this morning 12/28/17 and it felt like his arm was asleep. Patient does admit that he occasionally sleeps on that side, but denies any trauma. Patient states he has full motor strength, no pain in the arm at time of interview. Patient denies radiation of symptoms to other extremities and speech loss/ change. Patient also admits to chest pressure that occurred a few minutes ago, but is minimal in intensity. Denies associated SOB, abdominal pain, hemat uria, dysuria, bowel changes, vision changes, headaches. Patient denies recent illness, sick contact, travel history. PMD: None PMHX: HTN, HLD Meds: Losartan 100mg daily Allergies: NKDA PSHx: None Social: Previous smoker 1+ ppd for 10+ years, drinks 2-3 beers/ day (pt admits to 4 beers on 12/27 night), denies drug use FHX: Mother & Father from HTN/Diabetes complication Full code Contact sister Morena Gardner incase of emergency: [phone]. Present on Admission - Present on Admission Any Indicators Present on Admission: No Review of Systems - Constitutional Constitutional: absent: Chills, Fatigue, Fever - EENT Eyes: absent: Change in Vision, Pain - Cardiovascular Cardiovascular: absent: Chest Pain, Chest Pain at Rest, Dyspnea, Syncope - Respiratory Respiratory: absent: Cough, Dyspnea on Exertion, Wheezing, Chest Congestion - Gastrointestinal Gastrointestinal: absent: Abdominal Pain, Change in Bowel Habits, Dysphagia, Vomiting - Genitourinary Genitourinary: absent: Change in Urinary Stream, Hematuria - Musculoskeletal Musculoskeletal: absent: Abnormal Gait, Arthralgias, Muscle Weakness, Myalgias - Neurological Neurological: absent: Abnormal Gait, Abnormal Hearing - Psychiatric Psychiatric: absent: Anxiety, Change in Appetite, Confusion Past Patient History - Infectious Disease Hx of Infectious Diseases: None - Past Medical History & Family History Past Medical History?: Yes - Past Social History Smoking Status: Never Smoked - CARDIAC Hx Hypercholesterolemia: Yes Hx Hypertension: Yes - PULMONARY Hx Respiratory Disorders: No - NEUROLOGICAL Hx Neurological Disorder: No - HEENT Hx HEENT Problems: No - RENAL Hx Chronic Kidney Disease: No - ENDOCRINE/METABOLIC Hx Endocrine Disorders: No - HEMATOLOGICAL/ONCOLOGICAL Hx Human Immunodeficiency Virus (HIV): No - INTEGUMENTARY Hx Dermatological Problems: No - MUSCULOSKELETAL/RHEUMATOLOGICAL Hx Musculoskeletal Disorders: No Hx Falls: No - GASTROINTESTINAL Hx Gastrointestinal Disorders: No - GENITOURINARY/GYNECOLOGICAL Hx Genitourinary Disorders: No - PSYCHIATRIC Hx Substance Use: No - SURGICAL HISTORY Hx Surgeries: No - ANESTHESIA Hx Anesthesia: No Meds Allergies/Adverse Reactions: Allergies Allergy/AdvReac Type Severity Reaction Status Date / Time No Known Allergies Allergy Verified 12/28/17 12:24 Physical Exam - Constitutional Appears: Well, Non-toxic, No Acute Distress - Head Exam Head Exam: ATRAUMATIC, NORMAL INSPECTION, NORMOCEPHALIC - Eye Exam Eye Exam: EOMI, Normal appearance - ENT Exam ENT Exam: Mucous Membranes Moist - Respiratory Exam Respiratory Exam: Clear to Auscultation Bilateral, NORMAL BREATHING PATTERN. absent: Rales, Rhonchi, Wheezes - Cardiovascular Exam Cardiovascular Exam: +S1, +S2. absent: Systolic Murmur - GI/Abdominal Exam GI & Abdominal Exam: Normal Bowel Sounds, Soft. absent: Firm, Mass - Extremities Exam Extremities exam: Positive for: full ROM, normal inspection. Negative for: calf tenderness, pedal edema Additional comments: negative jorje test, negative spurling test Full ROM of upper and lower extremeties Capillary refill < 2 - Back Exam Back exam: NORMAL INSPECTION. absent: CVA tenderness (L), CVA tenderness (R) - Neurological Exam Neurological exam: Alert, CN II-XII Intact, Oriented x3 Additional comments: Normal heal to bradley test Normal finger to nose test - Psychiatric Exam Psychiatric exam: Normal Affect, Normal Mood - Skin Skin Exam: Dry, Normal Color, Warm Additional comments: poor hygiene of nails on all four extremities (discolored) Results - Vital Signs Recent Vital Signs: Last Vital Signs Temp 98.6 F 12/28/17 12:18 Pulse 80 12/28/17 15:43 Resp 16 12/28/17 15:43 BP 151/87 H 12/28/17 15:43 Pulse Ox 97 12/28/17 15:58 - Labs Result Diagrams: 12/28/17 14:14 12/28/17 14:14 Labs: Laboratory Results - last 24 hr 12/28/17 12/28/17 12/28/17 12:30 14:14 14:14 WBC 10.2 D RBC 4.76 Hgb 14.8 Hct 42.9 MCV 90.1 MCH 31.0 MCHC 34.4 RDW 13.3 Plt Count 277 MPV 8.1 Neut % (Auto) 72.3 Lymph % (Auto) 18.5 L [place] % (Auto) 7.5 Eos % (Auto) 0.7 Baso % (Auto) 1.0 Neut # (Auto) 7.4 H Lymph # (Auto) 1.9 [place] # (Auto) 0.8 Eos # (Auto) 0.1 Baso # (Auto) 0.1 PT 11.4 INR 1.0 APTT 30 Sodium Potassium Chloride Carbon Dioxide Anion Gap BUN Creatinine Est GFR ( Amer) Est GFR (Non-Af Amer) POC Glucose (mg/dL) 81 Random Glucose Hemoglobin A1c Calcium Total Bilirubin AST ALT Alkaline Phosphatase Troponin I Total Protein Albumin Globulin Albumin/Globulin Ratio Triglycerides Cholesterol LDL Cholesterol Direct HDL Cholesterol Blood Type Antibody Screen 12/28/17 12/28/17 12/28/17 14:14 14:14 14:14 WBC RBC Hgb Hct MCV MCH MCHC RDW Plt Count MPV Neut % (Auto) Lymph % (Auto) [place] % (Auto) Eos % (Auto) Baso % (Auto) Neut # (Auto) Lymph # (Auto) [place] # (Auto) Eos # (Auto) Baso # (Auto) PT INR APTT Sodium 134 Potassium 3.7 Chloride 98 Carbon Dioxide 24 Anion Gap 16 BUN 7 L Creatinine 0.4 L Est GFR ( Amer) > 60 Est GFR (Non-Af Amer) > 60 POC Glucose (mg/dL) Random Glucose 95 Hemoglobin A1c 5.5 Calcium 8.2 L Total Bilirubin 0.6 AST 65 H D ALT 77 H D Alkaline Phosphatase 114 Troponin I < 0.0120 Total Protein 7.6 Albumin 4.4 Globulin 3.2 Albumin/Globulin Ratio 1.4 Triglycerides 203 H D Cholesterol 237 H LDL Cholesterol Direct 171 H HDL Cholesterol 72 H Blood Type O POSITIVE Antibody Screen Negative Assessment & Plan - Assessment and Plan (Free Text) Assessment: 47M w/ PMHx: of HTN & HLD presents to ED for intermittent numbness and tingling in his left hand, ongoing for the past week: Left arm numbness - CT head (12/28): There is minimal diffuse/confluent chronic periventricular wh ite matter ischemic changes seen extending from the periventricular into the deep white matter both cerebral hemispheres. In addition, there appears to be a small chronic appearing lacunar type infarct left centrum semiovale and possibly left anterior frontal subcortical white matter. Moderate generalized volume loss - CXR (12/28): No active disease. No significant interval change compared to the prior examination(s). - EKG: partial RBBB, NSR - F/u CTA head/neck - F/u HgbA1C - F/u TSH/ Free T4 - F/u neurology, Dr. Bond recs - F/u MARCELA & EKG @ 6pm & 12 AM Hx of HTN: - losartan 100 mg PO daily Hx of HLD: - TGs 200s, LDL 170s, HDL 70s - crestor 5mg PO HS ETOH Hx: - Seizure precautions - Aspiration precautions - Fall precaution - Ativan Q6H PRN Prophylaxis: DVT: SCDs GI: none indicated at this time Diet: Heart healthy diet <Goldie Cruz V - Last Filed: 12/28/17 20:09> Results - Vital Signs Recent Vital Signs: Last Vital Signs Temp 98.7 F 12/28/17 18:00 Pulse 82 12/28/17 18:00 Resp 20 12/28/17 18:00 BP 160/79 H 12/28/17 18:00 Pulse Ox 97 12/28/17 18:00 - Labs Result Diagrams: 12/28/17 14:14 12/28/17 14:14 Labs: Laboratory Results - last 24 hr 12/28/17 12/28/17 12/28/17 12:30 14:14 14:14 WBC 10.2 D RBC 4.76 Hgb 14.8 Hct 42.9 MCV 90.1 MCH 31.0 MCHC 34.4 RDW 13.3 Plt Count 277 MPV 8.1 Neut % (Auto) 72.3 Lymph % (Auto) 18.5 L [place] % (Auto) 7.5 Eos % (Auto) 0.7 Baso % (Auto) 1.0 Neut # (Auto) 7.4 H Lymph # (Auto) 1.9 [place] # (Auto) 0.8 Eos # (Auto) 0.1 Baso # (Auto) 0.1 PT 11.4 INR 1.0 APTT 30 Sodium Potassium Chloride Carbon Dioxide Anion Gap BUN Creatinine Est GFR ( Amer) Est GFR (Non-Af Amer) POC Glucose (mg/dL) 81 Random Glucose Hemoglobin A1c Calcium Total Bilirubin AST ALT Alkaline Phosphatase Total Creatine Kinase Troponin I Total Protein Albumin Globulin Albumin/Globulin Ratio Triglycerides Cholesterol LDL Cholesterol Direct HDL Cholesterol Blood Type Antibody Screen 12/28/17 12/28/17 12/28/17 14:14 14:14 14:14 WBC RBC Hgb Hct MCV MCH MCHC RDW Plt Count MPV Neut % (Auto) Lymph % (Auto) [place] % (Auto) Eos % (Auto) Baso % (Auto) Neut # (Auto) Lymph # (Auto) [place] # (Auto) Eos # (Auto) Baso # (Auto) PT INR APTT Sodium 134 Potassium 3.7 Chloride 98 Carbon Dioxide 24 Anion Gap 16 BUN 7 L Creatinine 0.4 L Est GFR ( Amer) > 60 Est GFR (Non-Af Amer) > 60 POC Glucose (mg/dL) Random Glucose 95 Hemoglobin A1c 5.5 Calcium 8.2 L Total Bilirubin 0.6 AST 65 H D ALT 77 H D Alkaline Phosphatase 114 Total Creatine Kinase Troponin I < 0.0120 Total Protein 7.6 Albumin 4.4 Globulin 3.2 Albumin/Globulin Ratio 1.4 Triglycerides 203 H D Cholesterol 237 H LDL Cholesterol Direct 171 H HDL Cholesterol 72 H Blood Type O POSITIVE Antibody Screen Negative 12/28/17 19:28 WBC RBC Hgb Hct MCV MCH MCHC RDW Plt Count MPV Neut % (Auto) Lymph % (Auto) [place] % (Auto) Eos % (Auto) Baso % (Auto) Neut # (Auto) Lymph # (Auto) [place] # (Auto) Eos # (Auto) Baso # (Auto) PT INR APTT Sodium Potassium Chloride Carbon Dioxide Anion Gap BUN Creatinine Est GFR ( Amer) Est GFR (Non-Af Amer) POC Glucose (mg/dL) Random Glucose Hemoglobin A1c Calcium Total Bilirubin AST ALT Alkaline Phosphatase Total Creatine Kinase 183 H Troponin I Total Protein Albumin Globulin Albumin/Globulin Ratio Triglycerides Cholesterol LDL Cholesterol Direct HDL Cholesterol Blood Type Antibody Screen Attending/Attestation - Attestation I have personally seen and examined this patient.: Yes I have fully participated in the care of the patient.: Yes I have reviewed all pertinent clinical information: Yes Notes (Text): Patient seen, examined and case discussed with day-time resident. Patient seen in [facility] 10 in the emergency room. Patient does not have PMD and noted frequent ED visits but does not follow-up with a primary care doctor. Patient noted over the past week he has had some left arm numbness which he reports a little bit but would go away and this morning worsening. No motor deficits. He described as hand cramps in the left hand. Patient reports he did drink the night before and sleeps on his left side. Patient denies trauma to the arm. On my exam, strength intact bilateral upper extremity, capillary refill <2 seconds, pulses intact radial b/l, sensations appears in intact, cranial nerves intact, spurlings test negative, adson's test negative. Assessment/Plan 1) Left arm numbness Assessment/Plan * CT head (12/28): There is minimal diffuse/confluent chronic periventricular white matter ischemic changes seen extending from the periventricular into the deep white matter both cerebral hemispheres. In addition, there appears to be a small chronic appearing lacunar type infarct left centrum semiovale and possibly left anterior frontal subcortical white matter. Moderate generalized volume loss * CXR (12/28): No active disease. No significant interval change compared to the prior examination(s). * EKG: partial RBBB, NSR * F/u CTA head/neck * F/u HgbA1C * F/u TSH/ Free T4 * F/u neurology, Dr. Bond recs * F/u MARCELA & EKG @ 6pm & 12 AM 2) Hypertension Assessment/Plan * Losartan 100 mg PO daily * prior echo (2017); EF: 60-65%, left ventricular ejection fraction is within the normal range. trace tricuspid regurgitation, trace pulmonic valvular regurgitation 3) Lipid Disorder Assessment/Plan * TGs 200s, LDL 170s, HDL 70s * Start Crestor 5mg PO HS 4) ETOH Use Assessment/Plan * Seizure precautions * Aspiration precautions * Fall precaution * Ativan 1mg IVP Q6H PRN * Folic acid 1mg PO daily * Thiamine 100mg PO daily * MVI 1 tab PO daily 5) Tobacco Use Assessment/Plan * Nicoderm patch 6) History of Noncompliance * Noted in the EMR 7) Prophylaxis: * DVT ppx: SCDs * GI: none indicated at this time * Diet: Heart healthy diet
[2017-12-28] MEDS ORDERED: Iohexol 350mg/ml 100 ML ONE (19:22)
[2017-12-28 19:58] LABS: CK-MB 1.96 ng/mL (0.0-3.38); TROPONIN I 0.015 ng/mL (0.00-0.120)
[2017-12-29 00:59] LABS: CK-MB 1.81 ng/mL (0.0-3.38)
[2017-12-29] MEDS: Sodium Chloride 0.9% 1,000 ML IV SCH (04:37)
--- NOTE | 2017-12-29 07:05 | CP.PCM.PN ---
Objective - Vital Signs/Intake and Output Vital Signs (last 24 hours): Temp Pulse Resp BP Pulse Ox 98 F 73 20 153/86 H 98 12/29/17 04:00 12/29/17 04:00 12/29/17 04:00 12/29/17 04:00 12/29/17 04:00 Intake and Output: 12/29/17 12/29/17 06:59 18:59 Intake Total 1760 Balance 1760 - Medications Medications: Current Medications Aspirin (Aspirin Chewable) 81 mg PO DAILY [facility] Folic Acid (Folic Acid) 1 mg PO DAILY [facility] Sodium Chloride (Sodium Chloride 0.9%) 1,000 mls @ 100 mls/hr IV .Q10H SANDEEP Last Admin: 12/29/17 04:37 Dose: 100 mls/hr Lorazepam (Ativan) 1 mg IVP Q6H PRN PRN Reason: Seizure activity Losartan Potassium (Cozaar) 100 mg PO DAILY [facility] Multivitamins (Hexavitamin) 1 tab PO DAILY [facility] Rosuvastatin Calcium (Crestor) 5 mg PO HS [facility] Last Admin: 12/28/17 21:48 Dose: 5 mg Thiamine HCl (Vitamin B1 Tab) 100 mg PO DAILY [facility] - Labs Labs: 12/28/17 14:14 12/28/17 14:14 PT 11.4 SECONDS (9.7-12.2) 12/28/17 14:14 INR 1.0 12/28/17 14:14 APTT 30 SECONDS (21-34) 12/28/17 14:14
[2017-12-29 08:09] LABS: BASO # 0.1 K/uL (0.0-0.2); BASO % 1.2 % (0.0-2.0); EOS # 0.2 K/uL (0.0-0.7); EOS % 3.2 % (0.0-4.0); MEAN CELL VOLUME 90.9 fL (80.0-94.0); MEAN CORPUSCULAR HEMOGLOBIN 30.8 pg (27.0-31.0); MEAN CORPUSCULAR HGB CONC 33.9 g/dL (33.0-37.0); MEAN PLATELET VOLUME 8.1 fL (7.2-11.7); MONO # 0.5 K/uL (0.0-0.8); MONO % 8.3 % (0.0-10.0); NEUT # 3.5 K/uL (1.8-7.0); NEUT % 55.3 % (50.0-75.0); NRBC % 0.1 % (0.0-2.0); RBC 4.86 Mil/uL (4.40-5.90); RED CELL DISTRIBUTION WIDTH 13.4 % (11.5-14.5); WHITE BLOOD COUNT 6.4 K/uL (4.8-10.8)
[2017-12-29 08:21] LABS: ALB/GLOB RATIO 1.1 (1.0-2.1); ALBUMIN 3.8 g/dL (3.5-5.0); ALT/SGPT 63 U/L (21-72); AST/SGOT 63 U/L (17-59); BLOOD UREA NITROGEN 9 mg/dL (9-20); CALCIUM 8.4 mg/dl (8.6-10.4); GFR NON-AFRICAN AMERICAN > 60
[2017-12-29 08:47] LABS: HEPATITIS B SURFACE AG Negative (NEGATIVE)
[2017-12-29 08:53] LABS: HEPATITIS A IGM NEGATIVE (NEGATIVE); HEPATITIS B CORE AB NEGATIVE (NEGATIVE)
[2017-12-29 09:05] LABS: HEPATITIS C ANTIBODY NEGATIVE (NEGATIVE)
--- NOTE | 2017-12-29 10:04 | CP.PCM.CON ---
History of Present Illness - History of Present Illness History of Present Illness: PGY2 Neurology Consult Note for Dr. Bond Patient is a 47 y/o male with a PMHx HTN, hypercholesterolemia, and hyperlipidemia presents with left upper extremity heaviness and numbness. Patient comments that he has been experiencing heaviness and numbness every morning for the past week. The numbness resolves after a short period of time each morning, resulting in him regaining normal sensation in his arm. On 12/28/17 patient explained that he experienced a sustained loss of sensation and that caused him to decide to come to the hospital. At the time of this examination, the patient is no longer experiencing any numbness or heaviness in his left arm. Patient states he is feeling back to normal at this time. He has never experienced any numbness or tingling in any part of his body other than his left arm. Patient denies headache, dizziness, vision changes, dysphagia, difficulty swallowing, chest pain, palpitations, shortness of breath, cough, nausea, vomiting, or diarrhea. PMH: HTN, hypercholesterolemia, and hyperlipidemia PSH: Denies Family: Patients mother and father of HTN and diabetes complications. 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 Medications: Losartan 100mg PO Daily Allergies: NKDA Review of Systems - Review of Systems All systems: reviewed and no additional remarkable complaints except - Constitutional Constitutional: Fatigue - EENT Eyes: As Per HPI Ears: As Per HPI Nose/Mouth/Throat: As Per HPI - Cardiovascular Cardiovascular: As Per HPI - Respiratory Respiratory: As Per HPI - Gastrointestinal Gastrointestinal: As Per HPI - Genitourinary Genitourinary: As Per HPI - Musculoskeletal Musculoskeletal: As Per HPI - Integumentary Integumentary: As Per HPI - Neurological Neurological: As Per HPI - Psychiatric Psychiatric: As Per HPI - Endocrine Endocrine: As Per HPI - Hematologic/Lymphatic Hematologic: As Per HPI Past Patient History - Infectious Disease Hx of Infectious Diseases: None - Past Medical History & Family History Past Medical History?: Yes - Past Social History Smoking Status: Never Smoked - CARDIAC Hx Hypercholesterolemia: Yes Hx Hypertension: Yes - PULMONARY Hx Respiratory Disorders: No - NEUROLOGICAL Hx Neurological Disorder: No - HEENT Hx HEENT Problems: No - RENAL Hx Chronic Kidney Disease: No - ENDOCRINE/METABOLIC Hx Endocrine Disorders: No - HEMATOLOGICAL/ONCOLOGICAL Hx Human Immunodeficiency Virus (HIV): No - INTEGUMENTARY Hx Dermatological Problems: No - MUSCULOSKELETAL/RHEUMATOLOGICAL Hx Musculoskeletal Disorders: No Hx Falls: No - GASTROINTESTINAL Hx Gastrointestinal Disorders: No - GENITOURINARY/GYNECOLOGICAL Hx Genitourinary Disorders: No - PSYCHIATRIC Hx Substance Use: No - SURGICAL HISTORY Hx Surgeries: No - ANESTHESIA Hx Anesthesia: No Meds Allergies/Adverse Reactions: Allergies Allergy/AdvReac Type Severity Reaction Status Date / Time No Known Allergies Allergy Verified 12/28/17 12:24 - Medications Medications: Current Medications Aspirin (Aspirin Chewable) 81 mg PO DAILY [facility] Folic Acid (Folic Acid) 1 mg PO DAILY [facility] Heparin Sodium (Porcine) (Heparin) 5,000 units SC Q12H SANDEEP Lorazepam (Ativan) 1 mg IVP Q6H PRN PRN Reason: Seizure activity Losartan Potassium (Cozaar) 100 mg PO DAILY [facility] Multivitamins (Hexavitamin) 1 tab PO DAILY [facility] Rosuvastatin Calcium (Crestor) 5 mg PO HS [facility] Last Admin: 12/28/17 21:48 Dose: 5 mg Thiamine HCl (Vitamin B1 Tab) 100 mg PO DAILY [facility] Physical Exam - Constitutional Appears: Non-toxic, No Acute Distress - Head Exam Head Exam: ATRAUMATIC, NORMOCEPHALIC - Eye Exam Eye Exam: EOMI, Normal appearance, PERRL Pupil Exam: NORMAL ACCOMODATION, PERRL - Neck Exam Neck exam: Positive for: Full Rom Additional comments: negative spurlings - Respiratory Exam Respiratory Exam: NORMAL BREATHING PATTERN. absent: Accessory Muscle Use - Extremities Exam Extremities exam: Positive for: normal capillary refill, normal inspection, pedal pulses present. Negative for: pedal edema - Neurological Exam Neurological exam: Alert, CN II-XII Intact, Normal Gait, Oriented x3, Reflexes Normal Additional comments: Strength 5/5 b/l, normal sensation b/l - Psychiatric Exam Psychiatric exam: Normal Affect, Normal Mood - Skin Skin Exam: Dry, Normal Color, Warm Results - Vital Signs Recent Vital Signs: Last Vital Signs Temp 97.7 F 12/29/17 07:00 Pulse 73 12/29/17 07:00 Resp 20 12/29/17 07:00 BP 159/91 H 12/29/17 07:00 Pulse Ox 97 12/29/17 08:00 - Labs Result Diagrams: 12/29/17 07:56 12/29/17 07:56 Labs: Laboratory Results - last 24 hr 12/28/17 12/28/17 12/28/17 12:30 14:14 14:14 WBC 10.2 D RBC 4.76 Hgb 14.8 Hct 42.9 MCV 90.1 MCH 31.0 MCHC 34.4 RDW 13.3 Plt Count 277 MPV 8.1 Neut % (Auto) 72.3 Lymph % (Auto) 18.5 L [place] % (Auto) 7.5 Eos % (Auto) 0.7 Baso % (Auto) 1.0 Neut # (Auto) 7.4 H Lymph # (Auto) 1.9 [place] # (Auto) 0.8 Eos # (Auto) 0.1 Baso # (Auto) 0.1 PT 11.4 INR 1.0 APTT 30 Sodium Potassium Chloride Carbon Dioxide Anion Gap BUN Creatinine Est GFR ( Amer) Est GFR (Non-Af Amer) POC Glucose (mg/dL) 81 Random Glucose Hemoglobin A1c Calcium Phosphorus Magnesium Total Bilirubin AST ALT Alkaline Phosphatase Total Creatine Kinase CK-MB (Mass) Troponin I Total Protein Albumin Globulin Albumin/Globulin Ratio Triglycerides Cholesterol LDL Cholesterol Direct HDL Cholesterol Free T4 TSH 3rd Generation Hepatitis A IgM Ab Hep Bs Antigen Hep B Core IgM Ab Hepatitis C Antibody Blood Type Antibody Screen 12/28/17 12/28/17 12/28/17 14:14 14:14 14:14 WBC RBC Hgb Hct MCV MCH MCHC RDW Plt Count MPV Neut % (Auto) Lymph % (Auto) [place] % (Auto) Eos % (Auto) Baso % (Auto) Neut # (Auto) Lymph # (Auto) [place] # (Auto) Eos # (Auto) Baso # (Auto) PT INR APTT Sodium 134 Potassium 3.7 Chloride 98 Carbon Dioxide 24 Anion Gap 16 BUN 7 L Creatinine 0.4 L Est GFR ( Amer) > 60 Est GFR (Non-Af Amer) > 60 POC Glucose (mg/dL) Random Glucose 95 Hemoglobin A1c 5.5 Calcium 8.2 L Phosphorus Magnesium Total Bilirubin 0.6 AST 65 H D ALT 77 H D Alkaline Phosphatase 114 Total Creatine Kinase CK-MB (Mass) Troponin I < 0.0120 Total Protein 7.6 Albumin 4.4 Globulin 3.2 Albumin/Globulin Ratio 1.4 Triglycerides 203 H D Cholesterol 237 H LDL Cholesterol Direct 171 H HDL Cholesterol 72 H Free T4 TSH 3rd Generation Hepatitis A IgM Ab Hep Bs Antigen Hep B Core IgM Ab Hepatitis C Antibody Blood Type O POSITIVE Antibody Screen Negative 12/28/17 12/29/17 12/29/17 19:28 00:30 07:56 WBC 6.4 RBC 4.86 Hgb 15.0 Hct 44.2 MCV 90.9 MCH 30.8 MCHC 33.9 RDW 13.4 Plt Count 261 MPV 8.1 Neut % (Auto) 55.3 Lymph % (Auto) 32.0 [place] % (Auto) 8.3 Eos % (Auto) 3.2 Baso % (Auto) 1.2 Neut # (Auto) 3.5 Lymph # (Auto) 2.0 [place] # (Auto) 0.5 Eos # (Auto) 0.2 Baso # (Auto) 0.1 PT INR APTT Sodium Potassium Chloride Carbon Dioxide Anion Gap BUN Creatinine Est GFR ( Amer) Est GFR (Non-Af Amer) POC Glucose (mg/dL) Random Glucose Hemoglobin A1c Calcium Phosphorus Magnesium Total Bilirubin AST ALT Alkaline Phosphatase Total Creatine Kinase 183 H 158 CK-MB (Mass) 1.96 1.81 Troponin I 0.0150 < 0.0120 Total Protein Albumin Globulin Albumin/Globulin Ratio Triglycerides Cholesterol LDL Cholesterol Direct HDL Cholesterol Free T4 TSH 3rd Generation Hepatitis A IgM Ab Hep Bs Antigen Hep B Core IgM Ab Hepatitis C Antibody Blood Type Antibody Screen 12/29/17 12/29/17 12/29/17 07:56 07:56 07:56 WBC RBC Hgb Hct MCV MCH MCHC RDW Plt Count MPV Neut % (Auto) Lymph % (Auto) [place] % (Auto) Eos % (Auto) Baso % (Auto) Neut # (Auto) Lymph # (Auto) [place] # (Auto) Eos # (Auto) Baso # (Auto) PT INR APTT Sodium 136 Potassium 3.7 Chloride 101 Carbon Dioxide 23 Anion Gap 16 BUN 9 Creatinine 0.5 L Est GFR ( Amer) > 60 Est GFR (Non-Af Amer) > 60 POC Glucose (mg/dL) Random Glucose 100 Hemoglobin A1c Calcium 8.4 L Phosphorus 3.6 Magnesium 2.1 Total Bilirubin 0.7 AST 63 H ALT 63 Alkaline Phosphatase 87 Total Creatine Kinase CK-MB (Mass) Troponin I Total Protein 7.2 Albumin 3.8 Globulin 3.4 Albumin/Globulin Ratio 1.1 Triglycerides Cholesterol LDL Cholesterol Direct HDL Cholesterol Free T4 0.64 L TSH 3rd Generation 6.07 H Hepatitis A IgM Ab Negative Hep Bs Antigen Negative Hep B Core IgM Ab Negative Hepatitis C Antibody Negative Blood Type Antibody Screen Assessment & Plan - Assessment and Plan (Free Text) Assessment: Patient is a 47 year old male with a TIA and possible CVA. CTA of head and neck shows meningioma, 70% stenosis of the left ICA and 50% stenosis of the right ICA. Patient is pending MRI of brain to r/o CVA. We are recommending the followin. Brain MRI 2. Carotid US 3. Neuro Interventional consult for symptomatic 70% stenosis of left ICA. 3. Started on DAPT - given loading dose of Plavix today 4. PT/OT/S 5. Case Management Will continue to follow Case discussed with Dr. Varun Lopez PGY2
[2017-12-29] MEDS: Multiple Vitamins Tab PO SCH (10:21)
--- NOTE | 2017-12-29 12:32 | CT ---
Date of service: 12/28/2017 PROCEDURE: CTA HEAD AND NECK WITH CONTRAST HISTORY: left arm numbness COMPARISON: None available. TECHNIQUE: Initial noncontrast head CT was performed. Subsequently, CT angiogram of the head and neck were performed after the intravenous administration of 80 mL of Omnipaque 350. Contiguous 1.5mm thick images were obtained in the axial plane of the neck. 2-D coronal and sagittal MPR images were obtained. Imaging postprocessing was performed with 3-D images also obtained. A delayed contrast head CT was also obtained. This CT exam was performed using one or more of the following dose reduction techniques: Automated exposure control, adjustment of the mA and/or kV according to patient size, and/or use of iterative reconstruction technique. Contrast dose: 100 mL Visipaque 320 Radiation dose: Total exam DLP = inf_radiation_dlp mGy-cm. FINDINGS: HEAD: Right: The intracranial internal carotid artery, and anterior and middle cerebral arteries are widely patent. Left: The intracranial internal carotid artery, and anterior and middle cerebral arteries are widely patent. Posterior circulation: The visualized intracranial vertebral arteries, basilar artery and posterior cerebral arteries are widely patent. There is no endoluminal filling defect to suggest thrombus. There is no intracranial saccular aneurysm. NECK: There is a three vessel aortic arch. There is no stenosis at the origins of the great vessels at the level of the aortic arch. There are advanced atherosclerotic calcifications and mural plaques in the proximal internal carotid arteries. Right Carotid: On the right, the common carotid, internal carotid and external carotid arteries are widely patent. There is approximately 50 % stenosis in the internal carotid artery by NASCET criteria. Left Carotid: On the left, the common carotid, internal carotid and external carotid arteries are widely patent. There is greater than 70% hemodynamically significant stenosis in the internal carotid artery by NASCET criteria. The vertebral arteries are widely patent. The right vertebral artery is hypoplastic, an anatomic variant. The visualized soft tissues of the neck are normal. The visualized brain and cervical spine are within normal limits. There is biapical pleural parenchymal scarring, worse on the right. IMPRESSION: 1. No evidence of endoluminal thrombus,occlusion or definite significant stenosis in the intracranial arteries. 2. Greater than 70 % hemodynamically significant stenosis in the proximal left internal carotid artery. 3. Approximately 50 % stenosis in the proximal right internal carotid artery. 3. Patent bilateral vertebral arteries. A preliminary report was provided by [facility]. There are additional findings as described above.
--- NOTE | 2017-12-29 14:20 | CP.PCM.PN ---
<Bibi Pringle - Last Filed: 12/29/17 19:09> Subjective - Date & Time of Evaluation Date of Evaluation: 12/29/17 Time of Evaluation: 09:45 - Subjective Subjective: PGY-1 Bibi Pringle D.O. Medicine progress note for Dr. Cruz's service: Patient was seen and examined this morning. He states that his L arm continues to have tingling intermittently. Presently, he denies numbness. He denies WORTHY, vision change, LOC. Denies any loss of motor function or gait disturbance. Objective - Vital Signs/Intake and Output Vital Signs (last 24 hours): Temp Pulse Resp BP Pulse Ox 97.7 F 74 20 148/88 97 12/29/17 07:00 12/29/17 10:24 12/29/17 07:00 12/29/17 10:24 12/29/17 08:00 Intake and Output: 12/29/17 12/29/17 06:59 18:59 Intake Total 1760 Balance 1760 - Medications Medications: Current Medications Aspirin (Aspirin Chewable) 81 mg PO DAILY [facility] Last Admin: 12/29/17 10:21 Dose: 81 mg Folic Acid (Folic Acid) 1 mg PO DAILY [facility] Last Admin: 12/29/17 10:21 Dose: 1 mg Heparin Sodium (Porcine) (Heparin) 5,000 units SC Q12H [facility] Last Admin: 12/29/17 10:24 Dose: Not Given Lorazepam (Ativan) 1 mg IVP Q6H PRN PRN Reason: Seizure activity Losartan Potassium (Cozaar) 100 mg PO DAILY [facility] Last Admin: 12/29/17 10:21 Dose: 100 mg Multivitamins (Hexavitamin) 1 tab PO DAILY [facility] Last Admin: 12/29/17 10:21 Dose: 1 tab Rosuvastatin Calcium (Crestor) 5 mg PO HS [facility] Last Admin: 12/28/17 21:48 Dose: 5 mg Thiamine HCl (Vitamin B1 Tab) 100 mg PO DAILY [facility] Last Admin: 12/29/17 10:21 Dose: 100 mg - Labs Labs: 12/29/17 07:56 12/29/17 07:56 PT 11.4 SECONDS (9.7-12.2) 12/28/17 14:14 INR 1.0 12/28/17 14:14 APTT 30 SECONDS (21-34) 12/28/17 14:14 - Constitutional Appears: Non-toxic, No Acute Distress - Head Exam Head Exam: ATRAUMATIC, NORMAL INSPECTION - Eye Exam Eye Exam: EOMI, Normal appearance, PERRL - ENT Exam ENT Exam: Mucous Membranes Moist - Neck Exam Neck Exam: Normal Inspection - Respiratory Exam Respiratory Exam: Clear to Ausculation Bilateral, NORMAL BREATHING PATTERN. absent: Accessory Muscle Use, Respiratory Distress - Cardiovascular Exam Cardiovascular Exam: REGULAR RHYTHM, +S1, +S2 - GI/Abdominal Exam GI & Abdominal Exam: Soft, Normal Bowel Sounds. absent: Tenderness - Rectal Exam Rectal Exam: Deferred - Extremities Exam Extremities Exam: Full ROM, Normal Capillary Refill, Normal Inspection - Neurological Exam Neurological Exam: Alert, Awake, CN II-XII Intact, Oriented x3, Reflexes Normal. absent: Motor Sensory Deficit Neuro motor strength exam: Left Upper Extremity: 5, Right Upper Extremity: 5, Left Lower Extremity: 5, Right Lower Extremity: 5 Additional comments: negative Neers, Barry, Adsons, apprehension, Speed's tests - Psychiatric Exam Psychiatric exam: Normal Affect, Normal Mood - Skin Skin Exam: Dry, Intact, Normal Color, Warm Assessment and Plan - Assessment and Plan (Free Text) Assessment: Patient is a 47 yo male with a history of HTN who presented with intermittent LUE numbness and tingling x1 week. No acute CVA seen on imaging. >70% stenosis of L ICA on CTA. 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 - CTA head/neck: >70% stenosis L ICA, >50 % R ICA - Carotid u/s pending - Echo pending - ASA 81 mg PO daily - Plavix 300 mg loading dose today, then 75 mg PO daily - Crestor 5 mg PO QHS - Neurology consulted (Varun) - Cardiology consulted (Jesse) - PT/OT HTN - Monitor vitals Q4H - Losartan 100 mg PO daily - Start HCTZ 25 mg PO daily Hypothyroidism - TSH 6.07 - Free T4 0.64 - Repeat labs as outpatient, consider levothyroxine HLD - TG 203, choles 237, LDL 171, HDL 72 - Crestor 5 mg PO QHS Alcohol use disorder - CIWA - Ativan 1 mg IV Q6H PRN - MV daily - Thiamine 100 mg PO daily - Folic acid 1 mg PO daily - Cessation counseling Ppx: VTE: SCDs, heparin 5000 units SC Q12H GI: not indicated Code status: full code Case discussed with attending, Dr. Cruz. <Goldie Cruz Mik - Last Filed: 12/29/17 21:08> Objective - Vital Signs/Intake and Output Vital Signs (last 24 hours): Temp Pulse Resp BP Pulse Ox 97.7 F 78 20 134/84 97 12/29/17 07:00 12/29/17 16:00 12/29/17 07:00 12/29/17 14:59 12/29/17 16:00 - Medications Medications: Current Medications Aspirin (Aspirin Chewable) 81 mg PO DAILY [facility] Last Admin: 12/29/17 10:21 Dose: 81 mg Clopidogrel Bisulfate (Plavix) 75 mg PO DAILY [facility] Folic Acid (Folic Acid) 1 mg PO DAILY [facility] Last Admin: 12/29/17 10:21 Dose: 1 mg Heparin Sodium (Porcine) (Heparin) 5,000 units SC Q12H [facility] Last Admin: 12/29/17 10:24 Dose: Not Given Hydrochlorothiazide (Hydrodiuril) 25 mg PO DAILY [facility] Lorazepam (Ativan) 1 mg IVP Q6H PRN PRN Reason: Seizure activity Losartan Potassium (Cozaar) 100 mg PO DAILY [facility] Multivitamins (Hexavitamin) 1 tab PO DAILY [facility] Last Admin: 12/29/17 10:21 Dose: 1 tab Rosuvastatin Calcium (Crestor) 5 mg PO HS [facility] Last Admin: 12/28/17 21:48 Dose: 5 mg Thiamine HCl (Vitamin B1 Tab) 100 mg PO DAILY [facility] Last Admin: 12/29/17 10:21 Dose: 100 mg - Labs Labs: 12/29/17 07:56 12/29/17 07:56 PT 11.4 SECONDS (9.7-12.2) 12/28/17 14:14 INR 1.0 12/28/17 14:14 APTT 30 SECONDS (21-34) 12/28/17 14:14 Attending/Attestation - Attestation I have personally seen and examined this patient.: Yes I have fully participated in the care of the patient.: Yes I have reviewed all pertinent clinical information, including history, physical exam and plan: Yes Notes (Text): Patient seen, examined, and case discussed with medical massage therapist. Patient notes today he does not have any numbness or tingling on the right nor left arm. Patient underwent Brain MRI which does not show acute CVA; ct head and neck noted 70percent stenosis; pending neurointerventional evaluation. Patient is sta rted on DAPT therapy per neurology. Cardiology has seen and evaluated patient; optimize BP control and repeat echo completed. We have re-emphasized to the patient that he needs to be compliant on medi cations and need to follow-up with doctor given his co-morbid conditions we have recommended the clinic downstairs if he does not have a PMD he can follow-up with. Assessment/Plan 1) TIA Left arm numbness Cartoid Artery Stenosis Assessment/Plan * Neurology (Dr. Bond) on board-->help appreciated * Cardiology (Dr. Perez) on board-->help appreciated * CT head (12/28): There is minimal diffuse/confluent chronic periventricular white matter ischemic changes seen extending from the periventricular into the deep white matter both cerebral hemispheres. In addition, there appears to be a small chronic appearing lacunar type infarct left centrum semiovale and poss ibly left anterior frontal subcortical white matter. Moderate generalized volume loss * CXR (12/28): No active disease. No significant interval change compared to the prior examination(s). * Patient is on DAPT therapy * Aspirin 81mg PO daily * plavix 75mg Po daily * EKG: partial RBBB, NSR * CTA of head and neck shows meningioma, 70% stenosis of the left ICA and 50% stenosis of the right ICA * f/u neurointerventional recommendation * Brain MRI (12/29/17): old lacunar infarction in left centrum semiovale. mild chronic microangiopahtic changes. no mass, mass effect, or abnormal extra- axial fluid collection. midline sagittal structures are normal. no acute intracranial abnormality. * Hgba1c: 5.5 * Elevated TSH, Low Free T4-->repeat thyroid studies given acute stressor * Cardiac enzymes X3: negativ * Cartoid US ordered 2) Hypertension, Uncontrolled Assessment/Plan * Cardiology (Dr. Perez) on board-->help appreciated * if surgery is needed, pt is cleared * Losartan 100 mg PO daily * Add HCTZ 25mg PO daily * prior echo (2017); EF: 60-65%, left ventricular ejection fraction is within the normal range. trace tricuspid regurgitation, trace pulmonic valvular regurgitation * Repeat echo ordered 3) Lipid Disorder Assessment/Plan * TGs 200s, LDL 170s, HDL 70s * Start Crestor 5mg PO HS 4) ETOH Use Assessment/Plan * Seizure precautions * Aspiration precautions * Fall precaution * Ativan 1mg IVP Q6H PRN * Folic acid 1mg PO daily * Thiamine 100mg PO daily * MVI 1 tab PO daily 5) Tobacco Use Assessment/Plan * Nicoderm patch 6) History of Noncompliance * Noted in the EMR 7) Prophylaxis: * DVT ppx: SCDs * DVT pxx; heparin 5000 units [id number] * GI: none indicated at this time * Diet: Heart healthy diet
--- NOTE | 2017-12-29 15:40 | MRI ---
Date of service: 12/29/2017 PROCEDURE: MRI BRAIN WITHOUT CONTRAST HISTORY: left arm numbness COMPARISON: Noncontrast head CT from 12/28/2017. TECHNIQUE: Multiplanar, multisequence MR images of the brain were obtained without intravenous contrast enhancement. FINDINGS: HEMORRHAGE: None DWI: No evidence of an acute or early subacute infarction. BRAIN PARENCHYMA: There is an old lacunar infarction in the left centrum semiovale. There are mild chronic microangiopathic changes. There is no mass, mass effect or abnormal extra-axial fluid collection. The midline sagittal structures are normal. VENTRICLES: There is mild age advanced global parenchymal volume loss and proportionate enlargement of the ventricles and cortical sulci. CRANIUM: There is normal bone marrow signal pattern. ORBITS: Grossly unremarkable. PARANASAL SINUSES/MASTOIDS: There is mild mucosal thickening in the left inferior maxillary sinus. The remaining included paranasal sinuses are clear. VASCULAR SYSTEM: There are normal signal voids in the larger intracranial arteries. OTHER FINDINGS: None. IMPRESSION: No acute intracranial abnormality. Old lacunar infarction in the left centrum semiovale. Mild chronic microangiopathic changes. Mild age advanced global parenchymal volume loss.
--- NOTE | 2017-12-29 16:54 | CP.PCM.CON ---
History of Present Illness - History of Present Illness History of Present Illness: The pt is a 47 year old man, previously healthy, treated HTN, with arm numbness for a few days, with weakness, no resolved. head ct shows old stroke. pt is a non smoker, but smoked for ten years. Pt has hyperlipidemia, and drinks a few beers a day. no DM. 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 Pt has been on losartan here and BP still mildly elevated. pt had a ct and MRI, and there is an left sided old stroke, not acute. There is a left sided 70% stenosis of the internal carotid artery, 50% on the right. Review of Systems - Review of Systems All systems: reviewed and no additional remarkable complaints except (as above.) Past Patient History - Infectious Disease Hx of Infectious Diseases: None - Past Medical History & Family History Past Medical History?: Yes - Past Social History Smoking Status: Never Smoked - CARDIAC Hx Hypercholesterolemia: Yes Hx Hypertension: Yes - PULMONARY Hx Respiratory Disorders: No - NEUROLOGICAL Hx Neurological Disorder: No - HEENT Hx HEENT Problems: No - RENAL Hx Chronic Kidney Disease: No - ENDOCRINE/METABOLIC Hx Endocrine Disorders: No - HEMATOLOGICAL/ONCOLOGICAL Hx Human Immunodeficiency Virus (HIV): No - INTEGUMENTARY Hx Dermatological Problems: No - MUSCULOSKELETAL/RHEUMATOLOGICAL Hx Musculoskeletal Disorders: No Hx Falls: No - GASTROINTESTINAL Hx Gastrointestinal Disorders: No - GENITOURINARY/GYNECOLOGICAL Hx Genitourinary Disorders: No - PSYCHIATRIC Hx Substance Use: No - SURGICAL HISTORY Hx Surgeries: No - ANESTHESIA Hx Anesthesia: No Meds Allergies/Adverse Reactions: Allergies Allergy/AdvReac Type Severity Reaction Status Date / Time No Known Allergies Allergy Verified 12/28/17 12:24 - Medications Medications: Current Medications Aspirin (Aspirin Chewable) 81 mg PO DAILY [facility] Last Admin: 12/29/17 10:21 Dose: 81 mg Clopidogrel Bisulfate (Plavix) 75 mg PO DAILY [facility] Folic Acid (Folic Acid) 1 mg PO DAILY [facility] Last Admin: 12/29/17 10:21 Dose: 1 mg Heparin Sodium (Porcine) (Heparin) 5,000 units SC Q12H [facility] Last Admin: 12/29/17 10:24 Dose: Not Given Lorazepam (Ativan) 1 mg IVP Q6H PRN PRN Reason: Seizure activity Losartan Potassium (Cozaar) 100 mg PO DAILY [facility] Last Admin: 12/29/17 10:21 Dose: 100 mg Multivitamins (Hexavitamin) 1 tab PO DAILY [facility] Last Admin: 12/29/17 10:21 Dose: 1 tab Rosuvastatin Calcium (Crestor) 5 mg PO HS [facility] Last Admin: 12/28/17 21:48 Dose: 5 mg Thiamine HCl (Vitamin B1 Tab) 100 mg PO DAILY [facility] Last Admin: 12/29/17 10:21 Dose: 100 mg Physical Exam - Constitutional Appears: Well, No Acute Distress - Head Exam Head Exam: ATRAUMATIC, NORMAL INSPECTION - Eye Exam Eye Exam: EOMI, Normal appearance - ENT Exam ENT Exam: Mucous Membranes Moist - Neck Exam Neck exam: Positive for: Normal Inspection - Respiratory Exam Respiratory Exam: Clear to Auscultation Bilateral, NORMAL BREATHING PATTERN - Cardiovascular Exam Cardiovascular Exam: REGULAR RHYTHM - GI/Abdominal Exam GI & Abdominal Exam: Normal Bowel Sounds - Rectal Exam Rectal Exam: Deferred - Exam External exam: NORMAL EXTERNAL EXAM - Extremities Exam Extremities exam: Positive for: normal inspection - Back Exam Back exam: NORMAL INSPECTION - Neurological Exam Neurological exam: Alert, Oriented x3, Reflexes Normal - Psychiatric Exam Psychiatric exam: Normal Mood - Skin Skin Exam: Dry Results - Vital Signs Recent Vital Signs: Last Vital Signs Temp 97.7 F 12/29/17 07:00 Pulse 73 12/29/17 14:59 Resp 20 12/29/17 07:00 BP 134/84 12/29/17 14:59 Pulse Ox 97 12/29/17 08:00 - Labs Result Diagrams: 12/29/17 07:56 12/29/17 07:56 Labs: Laboratory Results - last 24 hr 12/28/17 12/29/17 12/29/17 19:28 00:30 06:16 WBC RBC Hgb Hct MCV MCH MCHC RDW Plt Count MPV Neut % (Auto) Lymph % (Auto) Monroe % (Auto) Eos % (Auto) Baso % (Auto) Neut # (Auto) Lymph # (Auto) Monroe # (Auto) Eos # (Auto) Baso # (Auto) Sodium Potassium Chloride Carbon Dioxide Anion Gap BUN Creatinine Est GFR ( Amer) Est GFR (Non-Af Amer) POC Glucose (mg/dL) 97 Random Glucose Calcium Phosphorus Magnesium Total Bilirubin AST ALT Alkaline Phosphatase Total Creatine Kinase 183 H 158 CK-MB (Mass) 1.96 1.81 Troponin I 0.0150 < 0.0120 Total Protein Albumin Globulin Albumin/Globulin Ratio Free T4 TSH 3rd Generation Hepatitis A IgM Ab Hep Bs Antigen Hep B Core IgM Ab Hepatitis C Antibody 12/29/17 12/29/17 12/29/17 07:56 07:56 07:56 WBC 6.4 RBC 4.86 Hgb 15.0 Hct 44.2 MCV 90.9 MCH 30.8 MCHC 33.9 RDW 13.4 Plt Count 261 MPV 8.1 Neut % (Auto) 55.3 Lymph % (Auto) 32.0 Monroe % (Auto) 8.3 Eos % (Auto) 3.2 Baso % (Auto) 1.2 Neut # (Auto) 3.5 Lymph # (Auto) 2.0 Monroe # (Auto) 0.5 Eos # (Auto) 0.2 Baso # (Auto) 0.1 Sodium 136 Potassium 3.7 Chloride 101 Carbon Dioxide 23 Anion Gap 16 BUN 9 Creatinine 0.5 L Est GFR ( Amer) > 60 Est GFR (Non-Af Amer) > 60 POC Glucose (mg/dL) Random Glucose 100 Calcium 8.4 L Phosphorus 3.6 Magnesium 2.1 Total Bilirubin 0.7 AST 63 H ALT 63 Alkaline Phosphatase 87 Total Creatine Kinase CK-MB (Mass) Troponin I Total Protein 7.2 Albumin 3.8 Globulin 3.4 Albumin/Globulin Ratio 1.1 Free T4 0.64 L TSH 3rd Generation 6.07 H Hepatitis A IgM Ab Hep Bs Antigen Hep B Core IgM Ab Hepatitis C Antibody 12/29/17 12/29/17 07:56 11:15 WBC RBC Hgb Hct MCV MCH MCHC RDW Plt Count MPV Neut % (Auto) Lymph % (Auto) Monroe % (Auto) Eos % (Auto) Baso % (Auto) Neut # (Auto) Lymph # (Auto) Monroe # (Auto) Eos # (Auto) Baso # (Auto) Sodium Potassium Chloride Carbon Dioxide Anion Gap BUN Creatinine Est GFR ( Amer) Est GFR (Non-Af Amer) POC Glucose (mg/dL) 95 Random Glucose Calcium Phosphorus Magnesium Total Bilirubin AST ALT Alkaline Phosphatase Total Creatine Kinase CK-MB (Mass) Troponin I Total Protein Albumin Globulin Albumin/Globulin Ratio Free T4 TSH 3rd Generation Hepatitis A IgM Ab Negative Hep Bs Antigen Negative Hep B Core IgM Ab Negative Hepatitis C Antibody Negative - EKG Data EKG Interpreted by: Sylviaelf EKG shows normal: Sinus rhythm (nsr, leftward axis. ) Assessment & Plan - Assessment and Plan (Free Text) Assessment: 1. Acute TIA, and old stroke by ct. left sided borderline signficant stenosis of the ICA. Pt is now on dapt. 2. If surgery is needed, pt is cleared. 3. Echo for assessment of LV EF, 4. Add thiazide for HTN
[2017-12-30 07:57] LABS: BASO # 0.1 K/uL (0.0-0.2); BASO % 1.1 % (0.0-2.0); EOS # 0.2 K/uL (0.0-0.7); EOS % 3.4 % (0.0-4.0); HEMOGLOBIN 15.4 g/dL (12.0-18.0); LYMPH # 1.8 K/uL (1.0-4.3); LYMPH % 25.2 % (20.0-40.0); MEAN CELL VOLUME 90.9 fL (80.0-94.0); MEAN CORPUSCULAR HEMOGLOBIN 30.7 pg (27.0-31.0); MEAN CORPUSCULAR HGB CONC 33.8 g/dL (33.0-37.0); MEAN PLATELET VOLUME 8.3 fL (7.2-11.7); MONO # 0.6 K/uL (0.0-0.8); MONO % 8.3 % (0.0-10.0); NEUT # 4.5 K/uL (1.8-7.0); NRBC % 0.1 % (0.0-2.0); RED CELL DISTRIBUTION WIDTH 13.5 % (11.5-14.5); WHITE BLOOD COUNT 7.2 K/uL (4.8-10.8)
[2017-12-30 08:17] LABS: ALB/GLOB RATIO 1.3 (1.0-2.1); ALBUMIN 4.1 g/dL (3.5-5.0); ALT/SGPT 83 U/L (21-72); AST/SGOT 101 U/L (17-59); BLOOD UREA NITROGEN 13 mg/dL (9-20); CALCIUM 8.6 mg/dl (8.6-10.4); GFR NON-AFRICAN AMERICAN > 60
[2017-12-30] MEDS: Multiple Vitamins Tab PO SCH (11:00)
--- NOTE | 2017-12-30 11:26 | CP.PCM.PN ---
Subjective - Date & Time of Evaluation Date of Evaluation: 12/30/17 Time of Evaluation: 11:26 - Subjective Subjective: PGY2 Neurology Note for Dr. Bond Patient seen and examined this morning at bedside. Patient is feeling well and has no complaints. Patient feels well and would like to go home today. Objective - Vital Signs/Intake and Output Vital Signs (last 24 hours): Temp Pulse Resp BP Pulse Ox 98.2 F 74 20 128/83 97 12/30/17 07:20 12/30/17 07:48 12/30/17 07:20 12/30/17 07:20 12/30/17 08:00 Intake and Output: 12/30/17 12/30/17 06:59 18:59 Intake Total 120 Balance 120 - Medications Medications: Current Medications Aspirin (Aspirin Chewable) 81 mg PO DAILY [facility] Last Admin: 12/30/17 11:00 Dose: 81 mg Clopidogrel Bisulfate (Plavix) 75 mg PO DAILY [facility] Last Admin: 12/30/17 11:00 Dose: 75 mg Folic Acid (Folic Acid) 1 mg PO DAILY [facility] Last Admin: 12/30/17 11:00 Dose: 1 mg Heparin Sodium (Porcine) (Heparin) 5,000 units SC Q12H [facility] Last Admin: 12/30/17 11:00 Dose: Not Given Hydrochlorothiazide (Hydrodiuril) 25 mg PO DAILY [facility] Last Admin: 12/30/17 11:00 Dose: 25 mg Lorazepam (Ativan) 1 mg IVP Q6H PRN PRN Reason: Seizure activity Losartan Potassium (Cozaar) 100 mg PO DAILY [facility] Last Admin: 12/30/17 11:00 Dose: 100 mg Multivitamins (Hexavitamin) 1 tab PO DAILY [facility] Last Admin: 12/30/17 11:00 Dose: 1 tab Rosuvastatin Calcium (Crestor) 5 mg PO HS [facility] Last Admin: 12/29/17 21:48 Dose: 5 mg Thiamine HCl (Vitamin B1 Tab) 100 mg PO DAILY [facility] Last Admin: 12/30/17 11:00 Dose: 100 mg - Labs Labs: 12/30/17 07:48 12/30/17 07:48 PT 11.4 SECONDS (9.7-12.2) 12/28/17 14:14 INR 1.0 12/28/17 14:14 APTT 30 SECONDS (21-34) 12/28/17 14:14 - Additional Findings Additional findings: - Constitutional Appears: Non-toxic, No Acute Distress - Head Exam Head Exam: ATRAUMATIC, NORMOCEPHALIC - Eye Exam Eye Exam: EOMI, Normal appearance, PERRL Pupil Exam: NORMAL ACCOMODATION, PERRL - Respiratory Exam Respiratory Exam: NORMAL BREATHING PATTERN. absent: Accessory Muscle Use - Extremities Exam Extremities exam: Positive for: normal capillary refill, normal inspection, pedal pulses present. Negative for: pedal edema - Neurological Exam Neurological exam: Alert, CN II-XII Intact, Normal Gait, Oriented x3, Reflexes Normal Additional comments: Strength 5/5 b/l, normal sensation b/l - Psychiatric Exam Psychiatric exam: Normal Affect, Normal Mood - Skin Skin Exam: Dry, Normal Color, Warm Assessment and Plan - Assessment and Plan (Free Text) Plan: Patient is a 47 year old male with a TIA. Reviewed MRI showing old lacunar infarction within the left centrum. Carotid US showing 70-95% stenosis on the left and no significant stenosis on the right. Patient is still without symptoms stating he is back to normal. Patient is to follow up with Vascular surgery, Dr. Sethi, for evaluation of clot in left carotid. He is stable to be discharged h ome from neurology stand point. Continue DAPT and follow up with Dr. Bond in her office in one month. Case discussed with Dr. Varun Torresn PGY2
--- NOTE | 2017-12-30 12:44 | CP.PCM.DIS ---
Provider - Provider Date of Admission: 12/28/17 15:15 Attending physician: Goldie Cruz DO Primary care physician: none Consults: neurology cardiology Time Spent in preparation of Discharge (in minutes): 45 Diagnosis - Discharge Diagnosis (1) Carotid stenosis Status: Chronic Priority: High (2) TIA (transient ischemic attack) Status: Resolved Priority: High (3) Hypertension Status: Chronic Priority: Medium (4) Alcohol use disorder Status: Chronic Priority: Medium Hospital Course - Lab Results Lab Results: Most Recent Lab Values WBC 7.2 K/uL (4.8-10.8) 12/30/17 07:48 RBC 5.00 Mil/uL (4.40-5.90) 12/30/17 07:48 Hgb 15.4 g/dL (12.0-18.0) 12/30/17 07:48 Hct 45.5 % (35.0-51.0) 12/30/17 07:48 MCV 90.9 fL (80.0-94.0) 12/30/17 07:48 MCH 30.7 pg (27.0-31.0) 12/30/17 07:48 MCHC 33.8 g/dL (33.0-37.0) 12/30/17 07:48 RDW 13.5 % (11.5-14.5) 12/30/17 07:48 Plt Count 262 K/uL (130-400) 12/30/17 07:48 MPV 8.3 fL (7.2-11.7) 12/30/17 07:48 Neut % (Auto) 62.0 % (50.0-75.0) 12/30/17 07:48 Lymph % (Auto) 25.2 % (20.0-40.0) 12/30/17 07:48 [place] % (Auto) 8.3 % (0.0-10.0) 12/30/17 07:48 Eos % (Auto) 3.4 % (0.0-4.0) 12/30/17 07:48 Baso % (Auto) 1.1 % (0.0-2.0) 12/30/17 07:48 Neut # (Auto) 4.5 K/uL (1.8-7.0) 12/30/17 07:48 Lymph # (Auto) 1.8 K/uL (1.0-4.3) 12/30/17 07:48 [place] # (Auto) 0.6 K/uL (0.0-0.8) 12/30/17 07:48 Eos # (Auto) 0.2 K/uL (0.0-0.7) 12/30/17 07:48 Baso # (Auto) 0.1 K/uL (0.0-0.2) 12/30/17 07:48 PT 11.4 SECONDS (9.7-12.2) 12/28/17 14:14 INR 1.0 12/28/17 14:14 APTT 30 SECONDS (21-34) 12/28/17 14:14 Sodium 136 mmol/L (132-148) 12/30/17 07:48 Potassium 3.8 mmol/L (3.6-5.2) 12/30/17 07:48 Chloride 103 mmol/L (98-107) 12/30/17 07:48 Carbon Dioxide 23 mmol/L (22-30) 12/30/17 07:48 Anion Gap 15 (10-20) 12/30/17 07:48 BUN 13 mg/dL (9-20) 12/30/17 07:48 Creatinine 0.5 mg/dL (0.8-1.5) L 12/30/17 07:48 Est GFR ( Amer) > 60 12/30/17 07:48 Est GFR (Non-Af Amer) > 60 12/30/17 07:48 POC Glucose (mg/dL) 81 mg/dL (65-110) 12/30/17 11:44 Random Glucose 96 mg/dL (75-110) 12/30/17 07:48 Hemoglobin A1c 5.5 % (4.2-6.5) 12/28/17 14:14 Calcium 8.6 mg/dl (8.6-10.4) 12/30/17 07:48 Phosphorus 4.1 mg/dL (2.5-4.5) 12/30/17 07:48 Magnesium 2.2 mg/dL (1.6-2.3) 12/30/17 07:48 Total Bilirubin 0.8 mg/dL (0.2-1.3) 12/30/17 07:48 AST 101 U/L (17-59) H D 12/30/17 07:48 ALT 83 U/L (21-72) H D 12/30/17 07:48 Alkaline Phosphatase 93 U/L (38-126) 12/30/17 07:48 Total Creatine Kinase 158 U/L (55-170) 12/29/17 00:30 CK-MB (Mass) 1.81 ng/mL (0.0-3.38) 12/29/17 00:30 Troponin I < 0.0120 ng/mL (0.00-0.120) 12/29/17 00:30 Total Protein 7.3 g/dL (6.3-8.3) 12/30/17 07:48 Albumin 4.1 g/dL (3.5-5.0) 12/30/17 07:48 Globulin 3.2 gm/dL (2.2-3.9) 12/30/17 07:48 Albumin/Globulin Ratio 1.3 (1.0-2.1) 12/30/17 07:48 Triglycerides 203 mg/dL (0-149) H D 12/28/17 14:14 Cholesterol 237 mg/dL (0-199) H 12/28/17 14:14 LDL Cholesterol Direct 171 mg/dL (0-129) H 12/28/17 14:14 HDL Cholesterol 72 mg/dL (30-70) H 12/28/17 14:14 Free T4 0.64 ng/dL (0.78-2.19) L 12/29/17 07:56 TSH 3rd Generation 6.07 mIU/L (0.46-4.68) H 12/29/17 07:56 Hepatitis A IgM Ab Negative (NEGATIVE) 12/29/17 07:56 Hep Bs Antigen Negative (NEGATIVE) 12/29/17 07:56 Hep B Core IgM Ab Negative (NEGATIVE) 12/29/17 07:56 Hepatitis C Antibody Negative (NEGATIVE) 12/29/17 07:56 Blood Type O POSITIVE 12/28/17 14:14 Antibody Screen Negative 12/28/17 14:14 - Hospital Course Hospital Course: Patient is a 47 yo male with PMH of HTN and HLD who presented to the ED for intermittent numbness and tingling in his left hand, ongoing for the past week. Patient states most recent episode woke him up at 6AM this morning 12/28/17 and it felt like his arm was asleep. Patient does admit that he occasionally sleeps on that side, but denies any trauma. Patient states he has full motor strength, no pain in the arm at time of interview. Patient denies radiation of symptoms to other extremities and speech loss/ change. Patient also admits to chest pressure that occurred a few minutes ago, but is minimal in intensity. Denies associated SOB, abdominal pain, hematuria, dysuria, bowel changes, vision changes, headaches. Patient denies recent illness, sick contact, travel history. Patient was given full dose ASA. CT head was negative for acute findings. CTA head/neck demonstrated >70% stenosis L ICA, >50 % stenosis R ICA. Neurology saw the patient and he was given a loading dose of Plavix and subsequently stated on dual-antiplatelet therapy (ASA 81, Plavix 75) and statin. 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 Patient had carotid ultrasound and echo. Patient was seen by cardiology and started on HCTZ for his hypertension. Patient admitted to significant alcohol use and was started on vitamins. Upon discharge, patient denied symptoms in his arm. His vitals were stable and BP improved. he was seen by PT and OT. He was highly encouraged to stop drinking alcohol. Discharge Exam - Head Exam Head Exam: ATRAUMATIC, NORMAL INSPECTION - Eye Exam Eye Exam: EOMI, Normal appearance, PERRL - ENT Exam ENT Exam: Mucous Membranes Moist - Neck Exam Neck exam: Normal Inspection - Respiratory Exam Respiratory Exam: Clear to PA & Lateral, NORMAL BREATHING PATTERN. absent: Accessory Muscle Use, Decreased Breath Sounds - Cardiovascular Exam Cardiovascular Exam: REGULAR RHYTHM, +S1, +S2. absent: Systolic Murmur - GI/Abdominal Exam GI & Abdominal Exam: Normal Bowel Sounds, Soft, Unremarkable. absent: Tenderness - Rectal Exam Rectal Exam: Deferred - Extremities Exam Extremities exam: normal inspection - Neurological Exam Neurological exam: Alert, CN II-XII Intact, Normal Gait, Oriented x3 Additional comments: no gross motor or sensory deficits - Psychiatric Exam Psychiatric exam: Normal Affect, Normal Mood - Skin Skin Exam: Dry, Intact, Normal Color, Warm Discharge Plan - Discharge Medications Prescriptions: Aspirin [Aspirin Chewable] 81 mg PO DAILY #30 chew Clopidogrel [Plavix] 75 mg PO DAILY #30 tab Folic Acid 1 mg PO DAILY #30 tab hydroCHLOROthiazide [Hydrodiuril] 25 mg PO DAILY #30 tab Losartan [Cozaar] 100 mg PO DAILY #30 tab Multivitamins [Hexavitamin] 1 tab PO DAILY #30 tab Rosuvastatin Calcium [Crestor] 5 mg PO HS #30 tab Thiamine [Vitamin B1 Tab] 100 mg PO DAILY #30 tab - Follow Up Plan Condition: STABLE Disposition: HOME/ ROUTINE Patient education suggested?: Yes Additional Instructions: Please follow-up at the [facility] ([phone]). You have an appointment on 01/08 at 11 AM. This will serve as your primary care provider where you can receive refills and referrals to specialists. You will also get follow-up blood work for your thyroid function and receive results of echocardiogram there. Please follow-up with nuerointerventionalist, Dr. Sethi, regarding the clot in the your carotid artery in your neck. Call [phone] to make an appointment within 1 week of discharge. You will be given several prescriptions. It is very important that you take aspirin, Plavix, and Crestor on a daily basis. Also, it is important that you stop drinking any alcohol. If symptoms recur, present to the nearest emergency room. Por favor hamilton el seguimiento en la [facility] [place] ([phone]). Tiene kaiden meliza el a de la . [place] servir catrina up proveedor de atencin primaria donde puede recibir resurtidos y referencias a especialistas. Tambin recibir un anlisis de mat para up funcin tiroidea all. Por favor, hamilton un seguimiento con nuerointerventionalist, Dr. Sethi, con respecto al cogulo en la arteria cartida en up mariza. Llame al [phone] para hacer kaiden meliza dentro de la primera semana del fermin. Se le darn varias recetas. Es muy importante que tome aspirina, Plavix y Crestor a diario. Adems, es importante que dejes de beber alcohol. Si los sntomas se repiten, presntelos en la rigoberto de emergencias ms cercana. Referrals: Joshua Sethi MD [Staff Provider] - Antonina Bond MD [Staff Provider] -
--- NOTE | 2017-12-30 15:04 | VASCLAB ---
Date of service: 12/30/2017 PROCEDURE: Carotid Duplex Exam. HISTORY: CTA suggestive of 70% stenosis on left COMPARISON: None available. TECHNIQUE: Grayscale and duplex Doppler evaluation of the cervical carotid and vertebral arteries were performed. The common carotid, carotid bifurcations and cervical Internal Carotid Artery (ICA) and proximal External Carotid Artery (ECA) were evaluated. The vertebral arteries were evaluated for gross patency and flow direction. Report prepared by Russell Negrete, BS, RVT FINDINGS: RIGHT CAROTID ARTERIES: 1. Common Carotid Artery: No significant focal plaque formation of the right common carotid artery. Maximum Peak Systolic velocity: 91 cm/sec: End-diastolic velocity 22 cm/sec. 2. Carotid Bifurcation: plaque formation. Maximum Peak Systolic velocity: 87 cm/sec: End-diastolic velocity 24 cm/sec. 3. Internal Carotid Artery: Plaque description: 3.1. Proximal Segment: Peak systolic velocity 104 cm/sec: End-diastolic velocity 21 cm/sec - % stenosis 0-15% 3.2. Middle Segment: Peak systolic velocity 124 cm/sec: End-diastolic velocity 29 cm/sec - % stenosis 0-15% 3.3. Distal Segment: Peak systolic velocity 42 cm/sec: End-diastolic velocity 12 cm/sec - % stenosis 0-15% 4. External Carotid Artery: No significant focal plaque formation. Peak systolic velocity 116 cm/sec 5. ICA/CCA Ratio: 1.4 LEFT CAROTID ARTERIES: 1. Common Carotid Artery: No significant focal plaque formation of the left common carotid artery. Maximum Peak Systolic velocity: 65 cm/sec: End-diastolic velocity 21 cm/sec. 2. Carotid Bifurcation: plaque formation. Maximum Peak Systolic velocity: 67 cm/sec: End-diastolic velocity 18 cm/sec. 3. Internal Carotid Artery: Plaque description: 3.1. Proximal Segment: Peak systolic velocity 239 cm/sec: End-diastolic velocity 103 cm/sec - % stenosis 70-95% 3.2. Middle Segment: Peak systolic velocity 118 cm/sec: End-diastolic velocity 46 cm/sec - % stenosis 50-60% 3.3. Distal Segment: Peak systolic velocity 44 cm/sec: End-diastolic velocity 17 cm/sec - % stenosis 0-15% 4. External Carotid Artery: No significant focal plaque formation. Peak systolic velocity cm/sec 5. ICA/CCA Ratio: 3.7 VERTEBRAL ARTERIES: 1. Right Vertebral Artery: The right vertebral artery flow direction is antegrade. 2. Left Vertebral Artery: The left vertebral artery flow direction is antegrade. OTHER FINDINGS: 1. Right Brachial Blood pressure: 144 mmHg. 2. Left Brachial Blood pressure: 140 mmHg. 3. No atherosclerotic calcification present IMPRESSION: RIGHT: Duplex scan does not suggest hemodynamically significant stenosis of the right extracranial carotid arteries. LEFT: 70-95% stenosis of the left proximal ICA with severe hemodynamic significance.
[2017-12-30 16:29] VITALS: BP 120/71; RESP 18; TEMP 98
[2017-12-30 16:59] VITALS: PULSE 80; O2SAT 97
--- NOTE | 2017-12-31 00:23 | CARD ---
APPROVED REPORT Date of service: 12/30/2017 EXAM: Two-dimensional and M-mode echocardiogram with Doppler and color Doppler. Other Information Quality : GoodRhythm : INDICATION CVA/TIA RISK FACTORS Hypertension Hyperlipidemia 2D DIMENSIONS IVSd1.0 (0.7-1.1cm)LVDd4.5 (3.9-5.9cm) PWd0.9 (0.7-1.1cm)LA [id number] (18-58mL) LVDs2.7 (2.5-4.0cm)FS (%) 39.6 % LVEF (%)70.3 (>50%)LVEF (Nazario's)72.89 % M-Mode DIMENSIONS Left Atrium (MM)3.74 (2.5-4.0cm)IVSd0.89 (0.7-1.1cm) Aortic Root3.52 (2.2-3.7cm)LVDd5.12 (4.0-5.6cm) Aortic Cusp Exc.2.10 (1.5-2.0cm)PWd0.89 (0.7-1.1cm) FS (%) 27 %LVDs3.72 (2.0-3.8cm) LVEF (%)65 (>50%) Mitral Valve MV E Jywwreft51.6cm/sMV A Nalnxfou755.0cm/sE/A ratio0.9 TDI Lateral E' Peak V10.16cm/sMedial E' Peak V6.93cm/sE/Lateral E'8.7 E/Medial E'12.8 LEFT VENTRICLE The left ventricle is normal size. There is normal left ventricular wall thickness. The left ventricular function is normal. The left ventricular ejection fraction is within the normal range. There is normal LV segmental wall motion. The left ventricular diastolic function is normal. Transmitral Doppler flow pattern is abnormal. RIGHT VENTRICLE The right ventricle is normal size. ATRIA The left atrium size is normal. The right atrium size is normal. AORTIC VALVE The aortic valve is normal in structure. MITRAL VALVE The mitral valve is normal in structure. TRICUSPID VALVE There is mild tricuspid regurgitation. <Conclusion> Normal LV systoli cfunction. Diastolic dysfunction. Normal chamber size.
--- NOTE | 2017-12-31 07:43 | CARD ---
APPROVED REPORT Date of service: 12/29/2017 EKG Measurement Heart [id number] <Conclusion> Sinus rhythm with 1st degree AV block Incomplete right bundle branch block Left anterior fascicular block Minimal voltage criteria for LVH, may be normal variant Nonspecific T wave abnormality Abnormal ECG
== END 2017-12-30 19:02 | disposition home or self-care (01) ==
LOC: C.ER 12:05 → C.9E 15:15 → C.6T 16:12
PROVIDERS: ADMIT Hospitalist; ATTEND Hospitalist
DX: I65.23 Occlusion and stenosis of bilateral carotid arteries (principal); G45.9 Transient cerebral ischemic attack, unspecified; D32.9 Benign neoplasm of meninges, unspecified; E78.00 Pure hypercholesterolemia, unspecified; E78.5 Hyperlipidemia, unspecified; F10.10 Alcohol abuse, uncomplicated; I10 Essential (primary) hypertension; I45.10 Unspecified right bundle-branch block; Z86.73 Personal history of transient ischemic attack (TIA), and cerebral infarction without residual deficits; Z87.891 Personal history of nicotine dependence; Z91.19 Patient's noncompliance with other medical treatment and regimen; Z79.899 Other long term (current) drug therapy; Z82.49 Family history of ischemic heart disease and other diseases of the circulatory system; Z83.3 Family history of diabetes mellitus
CPT/HCPCS: 36415; 70450; 70496; 70498; 70551; 71045; 80053; 80061; 80074; 82948; 83036; 83735; 84100; 84439; 84443; 84484; 85025; 85610; 85730; 86850; 86900; 93005; 93306; 93880; 97116; 97161; 97165; 97530; 99285; G0378; G8978; G8979; G8987; G8988; G8989; J7030; Q9967

== ENCOUNTER 2018-06-07 08:36 | Emergency (ER) | payer OTHER ==
[2018-06-07 08:37] VITALS: BMI 26.6
[2018-06-07 08:43] VITALS: BP 151/106; PULSE 95; RESP 18; TEMP 98.2; O2SAT 96
--- NOTE | 2018-06-07 09:29 | C.PDOC ---
History Of Present Illness 48 y/o male presents to the ER complaining of bilateral wrist pain and parasthesias in bilateral medial fingers which have been present for the past 2 weeks. Patient states that the parasthesias are worse when he wakes up in the morning. Patient reports that he did not use any medications for the symptoms. He notes that he has history of similar pain. 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 Time Seen by Provider: 06/07/18 09:18 Chief Complaint (Nursing): Finger,Hand,&Wrist History Per: Patient History/Exam Limitations: no limitations Onset/Duration Of Symptoms: Days Current Symptoms Are (Timing): Still Present Severity: Moderate Past Medical History Reviewed: Historical Data, Nursing Documentation, Vital Signs Vital Signs: Last Vital Signs Temp 98.2 F 06/07/18 08:40 Pulse 95 H 06/07/18 08:40 Resp 18 06/07/18 08:40 BP 151/106 H 06/07/18 08:40 Pulse Ox 96 06/07/18 08:40 - Medical History PMH: HTN, Hypercholesterolemia, Hyperlipidemia Denies: HIV, Chronic Kidney Disease Surgical History: No Surg Hx - [facility] Procedures INTRODUCTION OF SERUM/TOX/VACCINE INTO MUSCLE, PERC APPROACH (12/30/16) Family History: States: No Known Family Hx - Social History Hx Tobacco Use: No Hx Alcohol Use: Yes Hx Substance Use: No - Immunization History Hx Tetanus Toxoid Vaccination: No Hx Influenza Vaccination: No Hx Pneumococcal Vaccination: No Review Of Systems Except As Marked, All Systems Reviewed And Found Negative. Musculoskeletal: Positive for: Other (bilateral wrist pain) Neurological: Positive for: Other (parasthesias in bilateral medial fingers). Negative for: Weakness Physical Exam - Physical Exam Appears: Non-toxic, No Acute Distress Skin: Normal Color, Warm, Dry, Other (rough construction hands bilaterally) Extremity: Normal ROM, No Tenderness, Capillary Refill (< 2 seconds), No Swelling, Other (negative spade phalanx signs in hands) Pulses: Left Radial: Normal, Right Radial: Normal Neurological/Psych: Oriented x3, Normal Speech, Normal Sensation ED Course And Treatment O2 Sat by Pulse Oximetry: 96 (RA) Pulse Ox Interpretation: Normal Medical Decision Making Medical Decision Making: b/l hand parasthesias of medial 3 fingers worst upon waking, 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 [Outside] Disposition: HOME/ ROUTINE Disposition Time: 09:28 Additional Instructions: mantien los esguinses en las munecas cuando duermes ibuprofeno 400-600 mg cada 6 horas catrina necessario para dolor de las munecas/edilma Sigue con la [facility] para seguir up evaluacio'n para Carpal Tunnel Syndrome Instructions: Carpal Tunnel Syndrome (DC) Forms: [facility] (K[place]i) Print Language: BULGARIAN - Clinical Impression Clinical Impression: Paresthesia of finger - Scribe Statement The provider has reviewed the documentation as recorded by the Scribe Stas Sierra Provider Attestation: All medical record entries made by the Joseibe were at my direction and personally dictated by me. I have reviewed the chart and agree that the record accurately reflects my personal performance of the history, physical exam, medical decision making, and the department course for this patient. I have also personally directed, reviewed, and agree with the discharge instructions and disposition.
== END 2018-06-07 10:00 | disposition home or self-care (01) ==
LOC: C.ER 08:36
DX: R20.2 Paresthesia of skin (principal); I10 Essential (primary) hypertension; E78.00 Pure hypercholesterolemia, unspecified; E78.5 Hyperlipidemia, unspecified